=== PATIENT | female | born 1950 ===

== ENCOUNTER 2017-01-21 08:14 | Emergency (ER) | payer MEDICARE, OTHER ==
[2017-01-21 09:00] VITALS: O2SAT 99
--- NOTE | 2017-01-21 10:06 | ED PDOC ---
HPI: General Adult Time Seen by Provider: 01/21/17 09:00 Chief Complaint (Nursing): GI Problem Chief Complaint (Provider): weakness History Per: Patient History/Exam Limitations: no limitations Additional Complaint(s): 66yo female complaining of generalized weakness since last night. Patient's fasting glucose was 450+. Patient is taking oral diabetic medications. Also reports polyuria, diarrhea but denies hematuria, dysuria, vomit, abdominal pain. States normal glucose is 250. PMD: Alejandra Past Medical History Reviewed: Historical Data, Nursing Documentation, Vital Signs Vital Signs: Last Vital Signs Temp 97.7 F 01/21/17 14:57 Pulse 73 01/21/17 14:57 Resp 18 01/21/17 14:57 BP 131/97 H 01/21/17 14:57 Pulse Ox 99 01/21/17 14:57 - Medical History PMH: Asthma, Diabetes (type II) - Surgical History Surgical History: Other surgeries: tubal ligation, hardware in leg - Family History Family History: States: Unknown Family Hx - Social History Current smoker - smoking cessation education provided: No Alcohol: Other (quit drinking 3 months ago) Drugs: Denies - Home Medications Home Medications: Ambulatory Orders Medication Instructions Recorded ALPRAZolam [Xanax] 1 mg PO BID 01/21/17 Albuterol Sulfate [Proair Hfa] 2 puff IH Q6H PRN 01/21/17 Fexofenadine HCl [Divina NF] 180 mg PO DAILY 01/21/17 Glipizide [Glipizide Xl] 10 mg PO BID 01/21/17 Nitrofurantoin Macrocrystals 100 mg PO BID #14 cap 01/21/17 [Macrobid] SITagliptin [Januvia] 100 mg PO DAILY 01/21/17 - Allergies Allergies/Adverse Reactions: Allergies Allergy/AdvReac Type Severity Reaction Status Date / Time Penicillins Allergy SWELLING Verified 01/21/17 08:45 Review of Systems ROS Statement: Except As Marked, All Systems Reviewed And Found Negative Constitutional: Positive for: Weakness. Negative for: Fever Gastrointestinal: Positive for: Diarrhea. Negative for: Nausea, Vomiting, Abdominal Pain Genitourinary Female: Positive for: Other (polyuria). Negative for: Dysuria, Hematuria Physical Exam - Reviewed Nursing Documentation Reviewed: Yes Vital Signs Reviewed: Yes - Physical Exam Appears: Positive for: Well, Non-toxic, No Acute Distress Head Exam: Positive for: ATRAUMATIC, NORMAL INSPECTION, NORMOCEPHALIC Skin: Positive for: Warm, Dry Eye Exam: Positive for: EOMI, PERRL Cardiovascular/Chest: Positive for: Regular Rate, Rhythm Respiratory: Positive for: Normal Breath Sounds. Negative for: Rales, Rhonchi, Wheezing Gastrointestinal/Abdominal: Positive for: Soft. Negative for: Tenderness Extremity: Positive for: Normal ROM Neurologic/Psych: Positive for: Alert, Oriented - Laboratory Results Result Diagrams: 01/21/17 10:48 01/21/17 10:48 Urine dip results: Negative for: Leukocyte Esterase, Ketones - ECG O2 Sat by Pulse Oximetry: 99 (RA) Pulse Ox Interpretation: Normal Medical Decision Making Medical Decision Makin: impression hyperglycemia rule out DKA plan: -labs -vbg shock panel -IV fluids -reassess 1100 pH 7.36. pt afebrile. feels better 1245 Anion gap is normal. No ketones in urine. Was given 8 units insulin. borderline UTI, given macrobid 1435 Blood sugar is 300. patient's PMD is Alejandra. Patient will follow up with him tomorrow. pt feels better, tolerated po. Stable for discharge. Dx hyperglycemia, diarrhea. Disposition - Clinical Impression Clinical Impression: Diarrhea, Hyperglycemia, UTI (urinary tract infection) - Patient ED Disposition Is Patient to be Admitted: No Counseled Patient/Family Regarding: Studies Performed, Diagnosis, Need For Followup - Disposition Disposition: Routine/Home Disposition Time: 12:00 Condition: GOOD Additional Instructions: follow up with your primary doctor tomorrow for follow up. return to the ED With any worsening or concerning symptoms. Prescriptions: Nitrofurantoin Macrocrystals [Macrobid] 100 mg PO BID #14 cap Instructions: Acute Diarrhea (ED), Diabetic Hyperglycemia (ED) Additional Comments - Additional Comments Additional Comments: Scribe Attestation: Documented by Roman Kendrick acting as a scribe for Nuria Fagan MD. Provider Scribe Attestation: All medical record entries made by the Scribe were at my direction and personally dictated by me. I have reviewed the chart and agree that the record accurately reflects my personal performance of the history, physical exam, medical decision making, and the department course for this patient. I have also personally directed, reviewed, and agree with the discharge instructions and disposition.
[2017-01-21] MEDS ORDERED: Sodium Chloride 0.9% 1,000 ML IV STA (10:26)
[2017-01-21 10:59] LABS: VENOUS BLOOD GAS BASE EXCESS 1.4 mmol/L (0.0-2.0); VENOUS BLOOD GAS PCO2 49 mmHg (40-60); VENOUS BLOOD PH 7.36 (7.32-7.43)
[2017-01-21 11:04] LABS: RBC URINE 1 /hpf (0-3); URINE BILIRUBIN NEGATIVE (NEGATIVE); URINE BLOOD NEGATIVE (NEGATIVE); URINE COLOR YELLOW (YELLOW); URINE GLUCOSE (UA) >=500 mg/dL (Normal); URINE KETONE NEGATIVE (NEGATIVE); URINE LEUKOCYTE ESTERASE TRACE Leu/uL (Negative); URINE PROTEIN NEGATIVE (NEGATIVE); URINE UROBILINOGEN 0.2-1.0 mg/dL (0.2-1.0); WBC URINE 6 /hpf (0-5)
[2017-01-21 11:12] LABS: BASO % 0.4 % (0.0-2.0); EOS # 0.3 K/uL (0.0-0.7); EOS % 3.4 % (0.0-4.0); HEMATOCRIT 39.1 % (34.0-47.0); LYMPH # 2.5 K/uL (1.0-4.3); LYMPH % 28.7 % (20.0-40.0); MEAN CORPUSCULAR HEMOGLOBIN 32.5 pg (27.0-31.0); MEAN CORPUSCULAR HGB CONC 34.3 g/dL (33.0-37.0); MEAN PLATELET VOLUME 8.6 fl (7.2-11.7); MONO # 0.4 K/uL (0.0-0.8); MONO % 4.5 % (0.0-10.0); NEUT # 5.4 K/uL (1.8-7.0); NRBC % 0.1 % (0.0-0.0); RED CELL DISTRIBUTION WIDTH 12.3 % (11.5-14.5); WHITE BLOOD COUNT 8.5 K/uL (4.8-10.8)
[2017-01-21 11:20] LABS: CHLORIDE 101 mmol/L (98-107); SODIUM 136 mmol/l (132-148)
[2017-01-21 11:23] LABS: ALB/GLOB RATIO 1.1 (1.0-2.1); ALKALINE PHOSPHATASE 132 U/L (38-126); ALT/SGPT 36 U/L (9-52); AST/SGOT 34 U/L (14-36); BILIRUBIN,TOTAL 0.4 mg/dl (0.2-1.3); BLOOD UREA NITROGEN 9 mg/dl (7-17); CARBON DIOXIDE 25 mmol/L (22-30); GFR AFRICAN-AMERICAN > 60; TOTAL PROTEIN 7.2 G/DL (6.3-8.2)
[2017-01-21 11:24] LABS: CALCIUM 8.9 mg/dL (8.4-10.2)
[2017-01-21 11:34] LABS: GLUCOSE,RANDOM 452 mg/dL (65-105)
[2017-01-21] MEDS ORDERED: Insulin Regular 100 units/ml ONE (11:37)
[2017-01-21] MEDS ORDERED: Insulin Regular 100 units/ml SC STA (11:40)
[2017-01-21 14:58] VITALS: BP 131/97; PULSE 73; RESP 18; TEMP 97.7
== END 2017-01-21 15:12 | disposition home or self-care (01) ==
LOC: H.ER 08:14
DX: E11.65 Type 2 diabetes mellitus with hyperglycemia (principal); N39.0 Urinary tract infection, site not specified; R19.7 Diarrhea, unspecified; Z79.84 Long term (current) use of oral hypoglycemic drugs
CPT/HCPCS: 80053; 81003; 82803; 82948; 85025; 87086; 96372; 99284; J7040

== ENCOUNTER 2017-01-31 07:58 | Emergency (ER) | payer MEDICARE, OTHER ==
[2017-01-31 08:07] VITALS: BP 118/65; PULSE 90; RESP 18; TEMP 98.5; O2SAT 96
[2017-01-31] MEDS ORDERED: Tmp-Smz 800 mg-160 mg DS Tab PO STA (08:54)
[2017-01-31] MEDS ORDERED: Naproxen 500 MG TAB PO ONE ×2 (08:54→09:08)
[2017-01-31] MEDS ORDERED: Tmp-Smz 800 mg-160 mg DS Tab ONE (09:08)
--- NOTE | 2017-01-31 09:50 | ED PDOC ---
Lower Extremity Pain/Injury Time Seen by Provider: 01/31/17 08:16 Chief Complaint (Nursing): Lower Extremity Problem/Injury Chief Complaint (Provider): Lower Extremity Problem/Injury History Per: Patient History/Exam Limitations: no limitations Onset/Duration Of Symptoms: Days (x2 days) Current Symptoms Are (Timing): Still Present Additional Complaint(s): 66 y/o female with a past medical history of diabetes presents to the emergency department with a complaint of a first toe right foot pain x2 days. Patient states she cut the toe nail and cut too deep. Denies fever, chills, nausea, vomiting, or change in range of motion. PMD: Dr. Dany Alejandra MD Past Medical History Reviewed: Historical Data, Nursing Documentation, Vital Signs Vital Signs: Last Vital Signs Temp 98.5 F 01/31/17 08:07 Pulse 90 01/31/17 08:07 Resp 18 01/31/17 08:07 BP 118/65 01/31/17 08:07 Pulse Ox 96 01/31/17 08:07 - Medical History PMH: Asthma, Diabetes (type II) - Surgical History Surgical History: - Family History Family History: States: Unknown Family Hx - Social History Current smoker - smoking cessation education provided: No Alcohol: None Drugs: Denies - Home Medications Home Medications: Ambulatory Orders Medication Instructions Recorded ALPRAZolam [Xanax] 1 mg PO BID 01/21/17 Albuterol Sulfate [Proair Hfa] 2 puff IH Q6H PRN 01/21/17 Fexofenadine HCl [Divina NF] 180 mg PO DAILY 01/21/17 Glipizide [Glipizide Xl] 10 mg PO BID 01/21/17 Nitrofurantoin Macrocrystals 100 mg PO BID #14 cap 01/21/17 [Macrobid] SITagliptin [Januvia] 100 mg PO DAILY 01/21/17 Naproxen [Naprosyn] 500 mg PO BID PRN #20 tablet 01/31/17 Sulfamethoxazole/Trimethoprim 1 tab PO BID #14 tab 01/31/17 [Bactrim DS 800 mg-160 mg] - Allergies Allergies/Adverse Reactions: Allergies Allergy/AdvReac Type Severity Reaction Status Date / Time Penicillins Allergy SWELLING Verified 01/21/17 08:45 Review of Systems ROS Statement: Except As Marked, All Systems Reviewed And Found Negative Constitutional: Negative for: Fever, Chills Gastrointestinal: Negative for: Nausea, Vomiting Musculoskeletal: Positive for: Foot Pain (Right; first toe). Negative for: Other (Change in range of motion of the toe) Physical Exam - Reviewed Nursing Documentation Reviewed: Yes Vital Signs Reviewed: Yes - Physical Exam Appears: Positive for: Non-toxic, No Acute Distress Head Exam: Positive for: ATRAUMATIC, NORMOCEPHALIC Skin: Positive for: Normal Color, Warm, Dry Extremity: Positive for: Normal ROM, Tenderness (of the first toe to touch). Negative for: Swelling, Other (Redness, rash, or edema) - ECG O2 Sat by Pulse Oximetry: 96 (RA) Pulse Ox Interpretation: Normal Medical Decision Making Medical Decision Making: Time: 8:16 Initial impression: Toe pain history of DM Initial plan: --Naproxen 500 mg PO --Bactrim DS 1 tab Time: 8:30 Upon provider reevaluation patient is feeling better, is medically stable, and requires no further treatment in the ED at this time. Patient will be discharged home with Rx for Naproxen 500 mg and Bactrim DS 800mg-160mg . Counseling was provided and all questions were answered regarding diagnosis and need for follow up with Podiatry Clinic. There is agreement to discharge plan. Return if symptoms persist or worsen. Clinical Impression: Toe injury Scribe Attestation: Documented by Yovana Gallagher, acting as a scribe for An Grayson MD. Provider Scribe Attestation: All medical record entries made by the Scribe were at my direction and personally dictated by me. I have reviewed the chart and agree that the record accurately reflects my personal performance of the history, physical exam, medical decision making, and the department course for this patient. I have also personally directed, reviewed, and agree with the discharge instructions and disposition. Disposition - Clinical Impression Clinical Impression: Toe injury - Disposition Referrals: Podiatry Clinic [Outside] Disposition: Routine/Home Disposition Time: 09:30 Condition: STABLE Prescriptions: Naproxen [Naprosyn] 500 mg PO BID PRN #20 tablet PRN Reason: Pain, Moderate (4-7) Sulfamethoxazole/Trimethoprim [Bactrim DS 800 mg-160 mg] 1 tab PO BID #14 tab Instructions: Leg Pain (ED)
== END 2017-01-31 09:33 | disposition home or self-care (01) ==
LOC: H.ER 07:58
DX: S99.921A Unspecified injury of right foot, initial encounter (principal); X58.XXXA Exposure to other specified factors, initial encounter; Y93.E8 Activity, other personal hygiene; Y92.89 Other specified places as the place of occurrence of the external cause

== ENCOUNTER 2017-06-28 08:57 | Emergency (ER) | payer MEDICARE, OTHER ==
[2017-06-28 09:15] VITALS: TEMP 98.5
[2017-06-28 09:16] VITALS: BMI 27.4
--- NOTE | 2017-06-28 09:39 | ED PDOC ---
Syncope/Near Syncope/Dizziness Time Seen by Provider: 06/28/17 09:20 History Per: Patient (states that she started feeling dizziness last night. It feels like she would pass out but she has not. She was able to sleep okay but not as well as usually does. She has DM but does not check his own sugar. She is worried about her siblings (2 brothers and 2 sisters) who are in [place]. She [place] had [place] there[place] History/Exam Limitations: no limitations Onset/Duration Of Symptoms: Gradual Current Symptoms Are (Timing): Intermittent Episodes Associated Symptoms Preceding Syncopal Episode: Lightheadedness. denies: Vertigo, Vertigo Worse With Change In Head Position Seizure Or Post-ictal Symptoms: None Possible Causative Factor(s): Other Fall Associated With With Symptoms: No Severity: Mild - Symptoms Of CVA Recent Head Trauma: No - Risk Factors PE Risk Factors: Neg: Extremity Immobilization/Fx, Decreased Mobilty /Activity, Recent Major Surgery, Recent Hospitalization, Active Cancer, Previous DVT, Previous PE, CHF, Venous Stasis, Estrogen Usage, , Post-, Recent Major Trauma TAD Risk Factors: Neg: Hypertension, Connective Tissue Disease, Marfan's Syndrome, Eloy- Danlos Syndrome, Aortic Valve Disease, Active , Tumer's Syndrome, First Degree Relative With TAD, Sudden Onset Of Pain, Migration Of Pain, New Neurologic Symptoms Risk Factors (Syncope): Neg: H/O Ventricular Arrhythmias, Known Coronary Artery Disease, H/O Severe Valvular Disease, Congestive Heart Failure, H/O Congenital Heart Disease, Family History Of Sudden , Exertional Syncope, Brugada Syndrome Past Medical History Reviewed: Historical Data, Nursing Documentation, Vital Signs Vital Signs: Last Vital Signs Temp 98.5 F 06/28/17 09:15 Pulse 89 06/28/17 09:15 Resp 16 06/28/17 09:15 BP 120/65 06/28/17 09:15 Pulse Ox 96 06/28/17 09:15 - Medical History PMH: Asthma, Diabetes (type II) - Surgical History Surgical History: - Family History Family History: States: Unknown Family Hx - Living Arrangements Living Arrangements: Alone - Social History Current smoker - smoking cessation education provided: No Alcohol: None - Home Medications Home Medications: Ambulatory Orders Medication Instructions Recorded ALPRAZolam [Xanax] 1 mg PO BID 01/21/17 Albuterol Sulfate [Proair Hfa] 2 puff IH Q6H PRN 01/21/17 Fexofenadine HCl [Divina NF] 180 mg PO DAILY 01/21/17 Glipizide [Glipizide Xl] 10 mg PO BID 01/21/17 Nitrofurantoin Macrocrystals 100 mg PO BID #14 cap 01/21/17 [Macrobid] SITagliptin [Januvia] 100 mg PO DAILY 01/21/17 Naproxen [Naprosyn] 500 mg PO BID PRN #20 tablet 01/31/17 Sulfamethoxazole/Trimethoprim 1 tab PO BID #14 tab 01/31/17 [Bactrim DS 800 mg-160 mg] - Allergies Allergies/Adverse Reactions: Allergies Allergy/AdvReac Type Severity Reaction Status Date / Time Penicillins Allergy SWELLING Verified 01/21/17 08:45 Review of Systems ROS Statement: Except As Marked, All Systems Reviewed And Found Negative Constitutional: Negative for: Fever, Chills Cardiovascular: Negative for: Chest Pain Respiratory: Negative for: Cough, Shortness of Breath Gastrointestinal: Positive for: Other (going to bathroom frequently with formed stool). Negative for: Nausea, Vomiting, Diarrhea, Constipation Physical Exam - Reviewed Nursing Documentation Reviewed: Yes Vital Signs Reviewed: Yes - Physical Exam Appears: Positive for: Well, Non-toxic, No Acute Distress Head Exam: Positive for: ATRAUMATIC, NORMAL INSPECTION, NORMOCEPHALIC Skin: Positive for: Normal Color, Warm, DRY Eye Exam: Positive for: EOMI, Normal appearance, PERRL ENT: Positive for: Normal ENT Inspection Neck: Positive for: Normal, Painless ROM Cardiovascular/Chest: Positive for: Regular Rate, Rhythm Respiratory: Positive for: CNT, Normal Breath Sounds Gastrointestinal/Abdominal: Positive for: Normal Exam, Bowel Sounds, Soft Back: Positive for: Normal Inspection Extremity: Positive for: Normal ROM Neurologic/Psych: Positive for: Alert, Oriented - Laboratory Results Result Diagrams: 06/28/17 09:50 06/28/17 09:50 - ECG ECG: Positive for: Viewed By Me ECG Rhythm: Positive for: Normal QRS Rate: 87 O2 Sat by Pulse Oximetry: 96 - Progress Re-evaluation Time: 12:00 Condition: Re-examined, Improved Disposition - Clinical Impression Clinical Impression: Hyperglycemia - Patient ED Disposition Is Patient to be Admitted: No Doctor Will See Patient In The: Office - Disposition Referrals: Dany Alejandra MD [Staff Provider] - [facility] Brasher [Outside] Disposition: Routine/Home Disposition Time: 12:19 Condition: STABLE Instructions: Diabetic Hyperglycemia (ED) Forms: [employer] (Mongolian) - POA Present On Arrival: None
[2017-06-28] MEDS ORDERED: Sodium Chloride 0.9% 1,000 ML IV SCH (09:45)
[2017-06-28 10:06] LABS: BASO % 0.5 % (0.0-2.0); EOS # 0.1 K/uL (0.0-0.7); EOS % 0.9 % (0.0-4.0); HEMATOCRIT 41.8 % (34.0-47.0); LYMPH # 2.1 K/uL (1.0-4.3); LYMPH % 26.1 % (20.0-40.0); MEAN CELL VOLUME 95.3 fl (81.0-99.0); MEAN CORPUSCULAR HEMOGLOBIN 31.8 pg (27.0-31.0); MEAN CORPUSCULAR HGB CONC 33.4 g/dL (33.0-37.0); MEAN PLATELET VOLUME 7.8 fl (7.2-11.7); MONO # 0.4 K/uL (0.0-0.8); MONO % 5.4 % (0.0-10.0); NEUT # 5.4 K/uL (1.8-7.0); NEUT % 67.1 % (50.0-75.0)
[2017-06-28 10:08] LABS: RBC URINE 1 /hpf (0-3); URINE BACTERIA RARE (<OCC); URINE BILIRUBIN NEGATIVE (NEGATIVE); URINE BLOOD NEGATIVE (NEGATIVE); URINE COLOR YELLOW (YELLOW); URINE GLUCOSE (UA) >=500 mg/dL (Normal); URINE KETONE NEGATIVE (NEGATIVE); URINE LEUKOCYTE ESTERASE NEG Leu/uL (Negative); URINE PROTEIN 30 mg/dL (NEGATIVE); URINE UROBILINOGEN 0.2-1.0 mg/dL (0.2-1.0); WBC URINE < 1 /hpf (0-5)
[2017-06-28 10:18] LABS: BLOOD UREA NITROGEN 7 mg/dl (7-17); CALCIUM 9.4 mg/dL (8.4-10.2); CARBON DIOXIDE 24 mmol/L (22-30); CHLORIDE 98 mmol/L (98-107); GFR AFRICAN-AMERICAN > 60; GLUCOSE,RANDOM 318 mg/dL (65-105); POTASSIUM 4.2 MMOL/L (3.6-5.0); SODIUM 137 mmol/l (132-148)
[2017-06-28 12:29] VITALS: BP 126/75; PULSE 81; RESP 18; O2SAT 98
--- NOTE | 2017-06-29 11:39 | CARD ---
APPROVED REPORT EKG Measurement Heart [id number] <Conclusion> Normal sinus rhythm Normal ECG
== END 2017-06-28 12:31 | disposition home or self-care (01) ==
LOC: H.ER 08:57
DX: E11.65 Type 2 diabetes mellitus with hyperglycemia (principal); Z88.0 Allergy status to penicillin; J45.909 Unspecified asthma, uncomplicated
CPT/HCPCS: 80048; 81003; 82948; 84484; 85025; 93005; 96360; 96361; 99285; J7040

== ENCOUNTER 2017-08-03 05:18 | Emergency (ER) | payer MEDICARE, OTHER ==
[2017-08-03 05:19] VITALS: BMI 27.4
[2017-08-03] MEDS ORDERED: Sodium Chloride 0.9% 1,000 ML IV STA (06:16)
[2017-08-03] MEDS ORDERED: Dexamethasone 10 MG in Sodium Chloride 0.9% 50 ML IV STA (06:17)
--- NOTE | 2017-08-03 06:32 | ED PDOC ---
HPI: CCC, URI, Sore Throat Time Seen by Provider: 08/03/17 06:04 Chief Complaint (Nursing): ENT Problem Chief Complaint (Provider): Sore Throat History Per: Patient History/Exam Limitations: no limitations Onset/Duration Of Symptoms: Days (x3 days) Current Symptoms Are (Timing): Still Present Additional Complaint(s): 66 y/o female presents to the ED complaining of sore throat and hoarse voice x2 days and has history of Diabetes and Hypertension. Patient states she has trouble swallowing but can drink clear fluids. She also notes right sided ear pain and neck pain. Patient denies vomiting, diarrhea, cough, shortness of breath or any further medical complaints. PMD: Dr.Ellis Lucille Alejandra MD Past Medical History Reviewed: Historical Data, Nursing Documentation, Vital Signs Vital Signs: Last Vital Signs Temp 98.5 F 08/03/17 05:54 Pulse 97 H 08/03/17 05:54 Resp 18 08/03/17 05:54 BP 157/58 H 08/03/17 05:54 Pulse Ox 97 08/03/17 06:55 - Medical History PMH: Asthma, Diabetes (type II), HTN - Surgical History Surgical History: Other surgeries: Nose surgery, Left leg surgery - Family History Family History: States: Unknown Family Hx - Social History Current smoker - smoking cessation education provided: No Alcohol: Other (Yes) Drugs: Denies - Home Medications Home Medications: Ambulatory Orders Medication Instructions Recorded ALPRAZolam [Xanax] 1 mg PO BID 01/21/17 Albuterol Sulfate [Proair Hfa] 2 puff IH Q6H PRN 01/21/17 Fexofenadine HCl [Divina NF] 180 mg PO DAILY 01/21/17 Glipizide [Glipizide Xl] 10 mg PO BID 01/21/17 Nitrofurantoin Macrocrystals 100 mg PO BID #14 cap 01/21/17 [Macrobid] SITagliptin [Januvia] 100 mg PO DAILY 01/21/17 Naproxen [Naprosyn] 500 mg PO BID PRN #20 tablet 01/31/17 Sulfamethoxazole/Trimethoprim 1 tab PO BID #14 tab 01/31/17 [Bactrim DS 800 mg-160 mg] - Allergies Allergies/Adverse Reactions: Allergies Allergy/AdvReac Type Severity Reaction Status Date / Time Penicillins Allergy SWELLING Verified 01/21/17 08:45 Review of Systems ROS Statement: Except As Marked, All Systems Reviewed And Found Negative Constitutional: Positive for: Fever, Malaise ENT: Positive for: Throat Pain (sore throat and hoarse voice) Respiratory: Negative for: Cough, Shortness of Breath Gastrointestinal: Negative for: Vomiting, Diarrhea Physical Exam - Reviewed Nursing Documentation Reviewed: Yes Vital Signs Reviewed: Yes - Physical Exam Appears: Positive for: Non-toxic, No Acute Distress Head Exam: Positive for: ATRAUMATIC, NORMAL INSPECTION, NORMOCEPHALIC Skin: Positive for: Normal Color, Warm, Dry ENT: Positive for: Other (Bilateral anterior cervical adenopathy (right greater than left), no trismus). Negative for: Tonsillar Exudate (Oropharynx is injected with no tonsillar exudate) Cardiovascular/Chest: Positive for: Regular Rate, Rhythm. Negative for: Murmur Respiratory: Positive for: Normal Breath Sounds. Negative for: Accessory Muscle Use, Respiratory Distress Neurologic/Psych: Positive for: Alert, Oriented (x3) - ECG O2 Sat by Pulse Oximetry: 97 (RA) Pulse Ox Interpretation: Normal Medical Decision Making Medical Decision Making: Time: 06:16 Initial Impression: sore throat Initial Plan: --CMP --CBC w/ diff --Decadron 10mg --Sodium Chloride 0.9% 50ml IV --Toradol 10mg IV --Sodium Chlordie 1L IV --Blood culture --Accucheck --Candler (infectious mononucleosis) --Influenza A B --Rapid strep group --Reevaluation Time: 0700 Patient will be signed over to Dr. Becerra pending labs and reevaluation Scribe Attestation: Documented by Deven Sigala, acting as a scribe for Dr. Celena Becerra MD. Provider Scribe Attestation: All medical record entries made by the Scribe were at my direction and personally dictated by me. I have reviewed the chart and agree that the record accurately reflects my personal performance of the history, physical exam, medical decision making, and the department course for this patient. I have also personally directed, reviewed, and agree with the discharge instructions and disposition. Disposition - Disposition Referrals: Dany Alejandra MD [Primary Care Provider] - Forms: [employer] (Congolese) Patient Signed Over To: Celena Becerra Handoff Comments: Pending labs and reevaluation
[2017-08-03 07:08] LABS: ALB/GLOB RATIO 1.3 (1.0-2.1); ALKALINE PHOSPHATASE 105 U/L (38-126); ALT/SGPT 49 U/L (9-52); AST/SGOT 46 U/L (14-36); BILIRUBIN,TOTAL 0.4 mg/dl (0.2-1.3); BLOOD UREA NITROGEN 8 mg/dl (7-17); CALCIUM 8.9 mg/dL (8.4-10.2); CARBON DIOXIDE 27 mmol/L (22-30); CHLORIDE 101 mmol/L (98-107); GFR AFRICAN-AMERICAN > 60; GLUCOSE,RANDOM 239 mg/dL (65-105); POTASSIUM 3.8 MMOL/L (3.6-5.0); SODIUM 140 mmol/l (132-148); TOTAL PROTEIN 7.4 G/DL (6.3-8.2)
[2017-08-03 07:12] LABS: BASO % 0.3 % (0.0-2.0); EOS # 0.2 K/uL (0.0-0.7); EOS % 1.6 % (0.0-4.0); HEMATOCRIT 39.6 % (34.0-47.0); LYMPH # 1.9 K/uL (1.0-4.3); LYMPH % 17.6 % (20.0-40.0); MEAN CELL VOLUME 94.8 fl (81.0-99.0); MEAN CORPUSCULAR HEMOGLOBIN 32.3 pg (27.0-31.0); MEAN CORPUSCULAR HGB CONC 34.1 g/dL (33.0-37.0); MONO # 0.8 K/uL (0.0-0.8); MONO % 6.9 % (0.0-10.0); NEUT # 8.1 K/uL (1.8-7.0); NEUT % 73.6 % (50.0-75.0); RED CELL DISTRIBUTION WIDTH 12.7 % (11.5-14.5)
--- NOTE | 2017-08-03 07:22 | ED PDOC ---
- Laboratory Results Result Diagrams: 08/03/17 06:40 08/03/17 06:40 - ECG O2 Sat by Pulse Oximetry: 97 (RA) Medical Decision Making Medical Decision Making: Time: 07:00 Plan: --Patient signed out to me by Dr. Rain pending labs and reevaluation. Time: 08:50 Clinical Impression: Upper respiratory infection Plan: --Upon provider evaluation patient is medically stable, and requires no further treatment in the ED at this time. Patient will be discharged with Rx for Loratadine and Naproxen. Counseling was provided and all questions were answered regarding diagnosis and need for follow up with PMD. There is agreement to discharge plan. Return if symptoms persist or worsen. --- Scribe Attestation: Documented by Marquez Zimmerman acting as a scribe for Celena Becerra MD. Scribe Attestation: All medical record entries made by the Scribe were at my direction and personally dictated by me. I have reviewed the chart and agree that the record accurately reflects my personal performance of the history, physical exam, medical decision making, and the department course for this patient. I have also personally directed, reviewed, and agree with the discharge instructions and disposition. Disposition Counseled Patient/Family Regarding: Studies Performed, Diagnosis, Need For Followup, Rx Given - Clinical Impression Clinical Impression: URI (upper respiratory infection) - POA Present On Arrival: None - Disposition Referrals: Dany Alejandra MD [Primary Care Provider] - Disposition: Routine/Home Disposition Time: 08:44 Condition: STABLE Prescriptions: Loratadine [Claritin] 10 mg PO DAILY #10 tab Naproxen [Naprosyn] 500 mg PO BID PRN #15 tablet PRN Reason: Pain, Moderate (4-7) Instructions: Upper Respiratory Infection (ED) Forms: [employer] (Spanish)
[2017-08-03 07:55] VITALS: BP 130/72; PULSE 81; RESP 17; TEMP 97.6
[2017-08-03 08:58] VITALS: O2SAT 97
== END 2017-08-03 09:14 | disposition home or self-care (01) ==
LOC: H.ER 05:18
DX: J06.9 Acute upper respiratory infection, unspecified (principal); E11.9 Type 2 diabetes mellitus without complications; I10 Essential (primary) hypertension
CPT/HCPCS: 80053; 82948; 85025; 86308; 87040; 87070; 87430; 87804; 96361; 96374; 96375; 99283; J1100; J1885; J7040

== ENCOUNTER 2017-12-24 09:10 | Emergency (ER) | payer MEDICARE, OTHER ==
[2017-12-24 09:15] VITALS: BMI 27.0
--- NOTE | 2017-12-24 09:56 | ED PDOC ---
HPI: General Adult Time Seen by Provider: 12/24/17 09:33 Chief Complaint (Nursing): Dizziness/Lightheaded Chief Complaint (Provider): Dizziness History Per: Patient History/Exam Limitations: no limitations Onset/Duration Of Symptoms: Days (x2) Current Symptoms Are (Timing): Still Present Additional Complaint(s): Claire Guerrero is a 67 year old female, with a past medical history of diabetes and hypertension, who presents to the emergency department complaining of dizziness onset for x2 days. Patient describes it as room spinning and worst when she stands up. She denies similar symptoms in the past. She also reports nausea but denies any vomiting, chest pain, shortness of breath, paresthesia, weakness or visual changes. No further medical complaints. PMD: Dany Alejandra I Past Medical History Reviewed: Historical Data, Nursing Documentation, Vital Signs Vital Signs: Last Vital Signs Temp 97.6 F 12/24/17 13:35 Pulse 78 12/24/17 13:35 Resp 19 12/24/17 13:35 BP 128/78 12/24/17 13:35 Pulse Ox 98 12/24/17 13:35 - Medical History PMH: Asthma, Diabetes (type II), HTN - Surgical History Surgical History: - Family History Family History: States: Unknown Family Hx - Home Medications Home Medications: Ambulatory Orders Medication Instructions Recorded ALPRAZolam [Xanax] 1 mg PO BID 01/21/17 Fexofenadine HCl [Divina NF] 180 mg PO DAILY 01/21/17 Glipizide [Glipizide Xl] 10 mg PO BID 01/21/17 SITagliptin [Januvia] 100 mg PO DAILY 01/21/17 Albuterol Sulfate [Proair Hfa] 2 puff IH QID PRN 12/24/17 Gabapentin [Neurontin] 300 mg PO DAILY 12/24/17 Meclizine [Meclizine*] 25 mg PO Q6 PRN #20 tab 12/24/17 - Allergies Allergies/Adverse Reactions: Allergies Allergy/AdvReac Type Severity Reaction Status Date / Time Penicillins Allergy SWELLING Verified 01/21/17 08:45 Review of Systems ROS Statement: Except As Marked, All Systems Reviewed And Found Negative Eyes: Negative for: Vision Change Cardiovascular: Negative for: Chest Pain Respiratory: Negative for: Shortness of Breath Gastrointestinal: Positive for: Nausea. Negative for: Vomiting Neurological: Positive for: Dizziness (room spinning). Negative for: Weakness, Other (paresthesia) Physical Exam - Reviewed Nursing Documentation Reviewed: Yes Vital Signs Reviewed: Yes - Physical Exam Appears: Positive for: Non-toxic, No Acute Distress Head Exam: Positive for: ATRAUMATIC, NORMAL INSPECTION, NORMOCEPHALIC Skin: Positive for: Normal Color, Warm, Dry Eye Exam: Positive for: Normal appearance, PERRL, Nystagmus (horizontal) Neck: Positive for: Painless ROM, Supple Cardiovascular/Chest: Positive for: Regular Rate, Rhythm. Negative for: Murmur Respiratory: Positive for: Normal Breath Sounds. Negative for: Respiratory Distress Extremity: Positive for: Normal ROM. 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 Negative for: Motor/Sensory Deficits , Aphasia, Facial Droop - Laboratory Results Result Diagrams: 12/24/17 09:59 12/24/17 09:59 - ECG O2 Sat by Pulse Oximetry: 95 (RA) Pulse Ox Interpretation: Normal - Progress ED Course And Treament: Pt feels better, steady gait. Re-evaluation Time: 12:54 Condition: Improved Medical Decision Making Medical Decision Making: Initial Impression: Vertigo Initial Plan: --Head w/o contrast [CT] --EKG --CMP --Urine dipstick --CBC w/ differential --PTT --PT --Glucose, Blood, POC --Urinalysis 11:[address] FINDINGS: HEMORRHAGE: No intracranial hemorrhage. BRAIN: No mass effect or edema. Cerebral generalized atrophy and probable periventricular microvascular ischemic changes. VENTRICLES: Unremarkable. No hydrocephalus. CALVARIUM: Unremarkable. PARANASAL SINUSES: Mild coastal thickening ethmoidal air cells bilateral. MASTOID AIR CELLS: Unremarkable as visualized. No inflammatory changes. OTHER FINDINGS: No gross cerebellar pontine angle pathology. No gross internal auditory canal pathology seen. IMPRESSION: Cerebral atrophy and microvascular ischemic changes. No hemorrhage or mass effect. No mastoid, gross middle ear cavity or cerebellar pontine angle pathology noted. Chronic appearing ethmoidal sinus mucosal thickening Scribe Attestation: Documented by Rafa Moya, acting as a scribe for Celena Becerra MD Provider Scribe Attestation: All medical record entries made by the Scribe were at my direction and personally dictated by me. I have reviewed the chart and agree that the record accurately reflects my personal performance of the history, physical exam, medical decision making, and the department course for this patient. I have also personally directed, reviewed, and agree with the discharge instructions and disposition. Disposition - Clinical Impression Clinical Impression: Vertigo, Hyperglycemia - Disposition Referrals: [facility] [Outside] [facility] [Outside] Disposition: Routine/Home Condition: IMPROVED Prescriptions: Meclizine [Meclizine*] 25 mg PO Q6 PRN #20 tab PRN Reason: Dizziness Instructions: Vertigo (a Type of Dizziness), Hyperglycemia, Adult Forms: [employer] ([place]ese)
[2017-12-24 10:09] LABS: BASO % 0.5 % (0.0-2.0); EOS # 0.1 K/uL (0.0-0.7); EOS % 1.7 % (0.0-4.0); HEMOGLOBIN 13.9 g/dL (12.0-16.0); LYMPH # 1.8 K/uL (1.0-4.3); LYMPH % 26.6 % (20.0-40.0); MEAN CELL VOLUME 95.4 fl (81.0-99.0); MEAN CORPUSCULAR HGB CONC 34.6 g/dL (33.0-37.0); MEAN PLATELET VOLUME 8.5 fl (7.2-11.7); MONO # 0.3 K/uL (0.0-0.8); MONO % 4.2 % (0.0-10.0); NEUT # 4.6 K/uL (1.8-7.0); NRBC % 0.2 % (0.0-0.0); RBC 4.2 Mil/uL (3.80-5.20); RED CELL DISTRIBUTION WIDTH 12.6 % (11.5-14.5); WHITE BLOOD COUNT 6.8 K/uL (4.8-10.8)
[2017-12-24] MEDS ORDERED: Sodium Chloride 0.9% 1,000 ML IV STA (10:11)
[2017-12-24 10:27] LABS: ALB/GLOB RATIO 1.2 (1.0-2.1); ALBUMIN 4.1 g/dL (3.5-5.0); CALCIUM 9.3 mg/dL (8.4-10.2); GFR AFRICAN-AMERICAN > 60; GFR NON-AFRICAN AMERICAN > 60
[2017-12-24 10:48] LABS: ALT/SGPT 37 U/L (9-52); AST/SGOT 40 U/L (14-36); BLOOD UREA NITROGEN 15 mg/dl (7-17)
[2017-12-24 10:49] LABS: PARTIAL THROMBOPLASTIN TIME 27.3 Seconds (25.6-37.1); PROTHROMBIN TIME 11.2 Seconds (9.8-13.1)
[2017-12-24 10:54] LABS: URINE BACTERIA RARE (<OCC)
[2017-12-24 11:10] LABS: SQUAMOUS EPITHIAL < 1 /hpf (0-5); URINE BILIRUBIN NEGATIVE (NEGATIVE); URINE BLOOD NEGATIVE (NEGATIVE); URINE CLARITY CLEAR (Clear); URINE COLOR YELLOW (YELLOW); URINE GLUCOSE (UA) >=500 mg/dL (Normal); URINE LEUKOCYTE ESTERASE NEG Leu/uL (Negative); URINE PROTEIN 30 mg/dL (NEGATIVE); URINE UROBILINOGEN 0.2-1.0 mg/dL (0.2-1.0)
--- NOTE | 2017-12-24 11:10 | CT ---
PROCEDURE: CT HEAD WITHOUT CONTRAST. HISTORY: Vertigo COMPARISON: None available. TECHNIQUE: Axial computed tomography images were obtained through the head/brain without intravenous contrast. Radiation dose: Total exam DLP = 855 mGy-cm. This CT exam was performed using one or more of the following dose reduction techniques: Automated exposure control, adjustment of the mA and/or kV according to patient size, and/or use of iterative reconstruction technique. FINDINGS: HEMORRHAGE: No intracranial hemorrhage. BRAIN: No mass effect or edema. Cerebral generalized atrophy and probable periventricular microvascular ischemic changes. VENTRICLES: Unremarkable. No hydrocephalus. CALVARIUM: Unremarkable. PARANASAL SINUSES: Mild coastal thickening ethmoidal air cells bilateral. MASTOID AIR CELLS: Unremarkable as visualized. No inflammatory changes. OTHER FINDINGS: No gross cerebellar pontine angle pathology. No gross internal auditory canal pathology seen. IMPRESSION: Cerebral atrophy and microvascular ischemic changes. No hemorrhage or mass effect. No mastoid, gross middle ear cavity or cerebellar pontine angle pathology noted. Chronic appearing ethmoidal sinus mucosal thickening
[2017-12-24 13:36] VITALS: BP 128/78; PULSE 78; RESP 19; TEMP 97.6
[2017-12-24 18:10] VITALS: O2SAT 95
--- NOTE | 2017-12-25 10:08 | CARD ---
APPROVED REPORT EKG Measurement Heart [id number] <Conclusion> Normal sinus rhythm Normal ECG
== END 2017-12-24 13:45 | disposition home or self-care (01) ==
LOC: H.ER 09:10
DX: R42 Dizziness and giddiness (principal); E11.65 Type 2 diabetes mellitus with hyperglycemia; I10 Essential (primary) hypertension; J45.909 Unspecified asthma, uncomplicated; Z79.84 Long term (current) use of oral hypoglycemic drugs; Z88.0 Allergy status to penicillin
CPT/HCPCS: 70450; 80053; 81003; 82948; 85025; 85610; 85730; 93005; 99285; J7040

== ENCOUNTER 2017-12-27 09:28 | Inpatient (IN) | payer MEDICARE, OTHER ==
[2017-12-27 09:28] VITALS: BMI 27.0
--- NOTE | 2017-12-27 10:29 | ED PDOC ---
HPI: CCC, URI, Sore Throat Time Seen by Provider: 12/27/17 10:28 Chief Complaint (Nursing): Dizziness/Lightheaded Chief Complaint (Provider): ear pain, headache, dizziness History Per: Patient Additional Complaint(s): 67-year-old female presents to emergency department with right ear pain, sore throat and dizziness ongoing for 5 days. Patient was seen 2 days ago and had CAT scan of head completed along with labs. Patient was discharged with meclizine and returns today stating she does not feel better. Dizziness has persisted and patient feels unsteady on her feet. Patient has slight nausea with no vomiting. She is tolerating liquids and solids. No fever or chills. No chest pain, SOB or CHASE. PMD: Dr. Alejandra Past Medical History Reviewed: Historical Data, Nursing Documentation, Vital Signs Vital Signs: Last Vital Signs Temp 97 F L 12/27/17 09:33 Pulse 109 H 12/27/17 09:33 Resp BP 160/80 H 12/27/17 09:33 Pulse Ox 95 12/27/17 11:12 - Medical History PMH: Asthma, Diabetes (type II), HTN - Surgical History Surgical History: - Family History Family History: States: No Known Family Hx - Living Arrangements Living Arrangements: Alone - Social History Current smoker - smoking cessation education provided: No Alcohol: None Drugs: Denies - Home Medications Home Medications: Ambulatory Orders Medication Instructions Recorded ALPRAZolam [Xanax] 1 mg PO BID 01/21/17 Fexofenadine HCl [Divina NF] 180 mg PO DAILY 01/21/17 Glipizide [Glipizide Xl] 10 mg PO BID 01/21/17 SITagliptin [Januvia] 100 mg PO DAILY 01/21/17 Albuterol Sulfate [Proair Hfa] 2 puff IH QID PRN 12/24/17 Gabapentin [Neurontin] 300 mg PO DAILY 12/24/17 Meclizine [Meclizine*] 25 mg PO Q6 PRN #20 tab 12/24/17 - Allergies Allergies/Adverse Reactions: Allergies Allergy/AdvReac Type Severity Reaction Status Date / Time Penicillins Allergy SWELLING Verified 01/21/17 08:45 Curb-65 Severity Score - CURB-65 Severity Score Confusion: No Bun >19mg/dl (>7mmol/L): No Respiratory Rate greater than/equal to 30: No Curb-65 Score: 0 Percentage 30-day mortality: 0.6% Review of Systems ROS Statement: Except As Marked, All Systems Reviewed And Found Negative Constitutional: Negative for: Fever ENT: Positive for: Ear Pain Cardiovascular: Negative for: Chest Pain, Palpitations Gastrointestinal: Positive for: Nausea. Negative for: Vomiting, Abdominal Pain Genitourinary Female: Negative for: Dysuria Neurological: Positive for: Headache, Dizziness. Negative for: Weakness, Numbness, Incoordination, Change in Speech, Confusion, Seizures, Altered Mental Status Physical Exam - Reviewed Nursing Documentation Reviewed: Yes Vital Signs Reviewed: Yes - Physical Exam Appears: Positive for: Well, Non-toxic, No Acute Distress Skin: Negative for: Rash Eye Exam: Positive for: Normal appearance ENT: Positive for: Other (Right ear: cerumen, Left ear clear). Negative for: Nasal Congestion, Pharyngeal Erythema Cardiovascular/Chest: Positive for: Regular Rate, Rhythm Respiratory: Positive for: Normal Breath Sounds. 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 Negative for: Motor/Sensory Deficits, Aphasia, Facial Droop - Laboratory Results Result Diagrams: 12/27/17 11:00 12/27/17 11:00 - ECG Interpretation Of ECG: NSR 85 bpm, no acute finding, reviewed by PA and ED attending O2 Sat by Pulse Oximetry: 95 Pulse Ox Interpretation: Normal - Other Rad CXR X-Ray: Interpreted by Me, Viewed By Me X-Ray Interpretation: no acute finding Medical Decision Making Medical Decision Makin67 year old with dizziness, headache and ear pain CT head completed 2 days ago: no acute finding Plan: CBC CMP Trop CXR EKG PO tylenol Patient with persistent dizziness, nausea and unsteady gait despite taking meclizine at home for [address] to [address] Alejandra, patient's primary doctor, who states to admit patient overnight for observation. Half-normal saline at 80 ML's per hour was ordered as per Dr. Alejandra. Dr. Newby contacted for neuro consult as per Dr. Alejandra. MRI brain ordered as per Dr. Newby along with 2 mg IV dexamathasone. Patient is aware of and agrees with admission. Disposition - Clinical Impression Clinical Impression: Dizziness, Unsteady gait - Patient ED Disposition Is Patient to be Admitted: Yes - Disposition Disposition Time: 12:12 Condition: FAIR - POA Present On Arrival: Poor Glycemic Control Results - Lab Results Lab Results: 12/27/17 12/27/17 11:00 11:00 WBC 7.8 RBC 4.48 Hgb 14.7 Hct 43.2 MCV 96.5 MCH 32.8 H MCHC 34.0 RDW 12.7 Plt Count 236 MPV 8.3 Neut % (Auto) 68.7 Lymph % (Auto) 24.4 [place] % (Auto) 5.5 Eos % (Auto) 0.8 Baso % (Auto) 0.6 Neut # (Auto) 5.4 Lymph # (Auto) 1.9 [place] # (Auto) 0.4 Eos # (Auto) 0.1 Baso # (Auto) 0.0 Sodium 142 Potassium 4.3 Chloride 101 Carbon Dioxide 28 Anion Gap 17 BUN 10 Creatinine 0.6 L Est GFR ( Amer) > 60 Est GFR (Non-Af Amer) > 60 Random Glucose 281 H Calcium 9.6 Total Bilirubin 0.7 AST 67 H D ALT 58 H D Alkaline Phosphatase 96 Troponin I < 0.0120 Total Protein 7.9 Albumin 4.3 Globulin 3.6 Albumin/Globulin Ratio 1.2
[2017-12-27] MEDS ORDERED: Dexamethasone 4 mg/1 ml IV STA (11:09)
--- NOTE | 2017-12-27 11:37 | RAD ---
HISTORY: Admit COMPARISON: Comparison chest 09/02/2017. FINDINGS: LUNGS: No active pulmonary disease. Note that both lung apices are partially obscured by overlying facial soft tissue artifact. PLEURA: No significant pleural effusion identified, no pneumothorax apparent. CARDIOVASCULAR: Heart upper limits of normal/borderline enlarged. . OSSEOUS STRUCTURES: Minor multilevel degenerative spondylosis of the thoracic spine. . VISUALIZED UPPER ABDOMEN: Normal. OTHER FINDINGS: None. IMPRESSION: No acute infiltrates.
[2017-12-27] MEDS ORDERED: Dexamethasone 4 mg/1 ml ONE (11:39)
[2017-12-27 11:48] LABS: BASO % 0.6 % (0.0-2.0); EOS # 0.1 K/uL (0.0-0.7); EOS % 0.8 % (0.0-4.0); HEMOGLOBIN 14.7 g/dL (12.0-16.0); LYMPH # 1.9 K/uL (1.0-4.3); LYMPH % 24.4 % (20.0-40.0); MEAN CELL VOLUME 96.5 fl (81.0-99.0); MEAN CORPUSCULAR HEMOGLOBIN 32.8 pg (27.0-31.0); MEAN PLATELET VOLUME 8.3 fl (7.2-11.7); MONO # 0.4 K/uL (0.0-0.8); MONO % 5.5 % (0.0-10.0); NEUT # 5.4 K/uL (1.8-7.0); NEUT % 68.7 % (50.0-75.0); NRBC % 1.3 % (0.0-0.0); RBC 4.48 Mil/uL (3.80-5.20); RED CELL DISTRIBUTION WIDTH 12.7 % (11.5-14.5); WHITE BLOOD COUNT 7.8 K/uL (4.8-10.8)
[2017-12-27 12:03] LABS: ALB/GLOB RATIO 1.2 (1.0-2.1); ALBUMIN 4.3 g/dL (3.5-5.0); ALT/SGPT 58 U/L (9-52); AST/SGOT 67 U/L (14-36); BLOOD UREA NITROGEN 10 mg/dl (7-17); CALCIUM 9.6 mg/dL (8.4-10.2); GFR AFRICAN-AMERICAN > 60; GFR NON-AFRICAN AMERICAN > 60
[2017-12-27] MEDS ORDERED: Sodium Chloride 0.45% 1,000 ML IV SCH (19:45)
[2017-12-27] MEDS: GlipiZIDE 10 mg SR Tab PO SCH (20:10)
[2017-12-27] MEDS: Insulin Lispro (humaLOG) 100 Units/ml Inj SC SCH (22:48)
[2017-12-28 06:11] LABS: MEAN CORPUSCULAR HEMOGLOBIN 33.2 pg (27.0-31.0); MEAN CORPUSCULAR HGB CONC 34.2 g/dL (33.0-37.0); RBC 4.22 Mil/uL (3.80-5.20); RED CELL DISTRIBUTION WIDTH 12.9 % (11.5-14.5); WHITE BLOOD COUNT 10.5 K/uL (4.8-10.8)
[2017-12-28] MEDS: Insulin Lispro (humaLOG) 100 Units/ml Inj SC SCH ×4 (07:56→22:59)
[2017-12-28 08:52] LABS: BLOOD UREA NITROGEN 12 mg/dl (7-17); CALCIUM 9.1 mg/dL (8.4-10.2); GFR AFRICAN-AMERICAN > 60; GFR NON-AFRICAN AMERICAN > 60
[2017-12-28] MEDS: GlipiZIDE 10 mg SR Tab PO SCH ×2 (09:32→17:15)
--- NOTE | 2017-12-28 10:32 | CARD ---
APPROVED REPORT EKG Measurement Heart [id number] <Conclusion> Normal sinus rhythm Normal ECG
--- NOTE | 2017-12-28 11:12 | MRI ---
PROCEDURE: Magnetic Resonance Angiography Brain HISTORY: dizziness, headache COMPARISON: None available. TECHNIQUE: 3D time of flight MR angiography of the intracranial arteries was performed. Rotating maximum intensity projection images were generated. FINDINGS: INTERNAL CAROTID ARTERIES: The skull base, petrous, and supraclinoid segments are bilaterally widely patient. There is limited atherosclerotic narrowing of the proximal cavernous right ICA with the left ICA widely patent through the cavernous segment. ANTERIOR CEREBRAL ARTERIES: Unremarkable. A1 and A2 segments are widely patent. Smaller distal branches unremarkable, as visualized. MIDDLE CEREBRAL ARTERIES: Unremarkable. M1 and M2 segments are widely patent. Perisylvian branches grossly symmetric. POSTERIOR CIRCULATION: Basilar Artery: Unremarkable. Distal Vertebral Arteries: Unremarkable. Posterior Cerebral Arteries: Hypoplastic left P1 SOCIAL SERVICES ASSISTANT with unremarkable right SOCIAL SERVICES ASSISTANT. Posterior Inferior Cerebellar Arteries: Unremarkable. ANEURYSM/ VASCULAR MALFORMATIONS: None. OTHER FINDINGS: None. IMPRESSION: Atherosclerosis of the proximal cavernous right ICA segment is appreciated without significant stenosis resulting. 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 Remainder the intracranial MR angiogram is otherwise unremarkable.
--- NOTE | 2017-12-28 11:34 | HP ---
ADMITTING HISTORY AND PHYSICAL HISTORY OF PRESENT ILLNESS: Ms. Guerrero is a 67-year-old female who was admitted via the Emergency Room because of persistent dizziness and feeling like she was going to blackout for several days prior to presentation. She also complained of right ear pain. She was seen in the Emergency Room recently for similar condition, treated and discharged home after all workup was non-revealing, but only recurrent because of the above symptoms. In the Emergency Room, she was found to have elevated serum glucose and a blood pressure. She was therefore admitted to rule out cerebrovascular pathology and to better control of blood pressure and diabetes. PAST MEDICAL HISTORY: Remarkable for diabetes mellitus, asthma, hypertension and hyperlipidemia with anxiety. FAMILY HISTORY: Non-revealing. SOCIAL HISTORY: Socially, she does not smoke or drink. REVIEW OF SYSTEMS: Essentially remarkable for anxiety disorder. MEDICATIONS: Include Xanax, Divina, glipizide, Januvia, albuterol, Neurontin, and meclizine, but she is noncompliant to all medications and diet. PHYSICAL EXAMINATION GENERAL: The patient is alert and oriented, still complains of feeling dizzy. She was gradually improving with IV hydration. VITAL SIGNS: Blood pressure of 160/92, pulse of 100, respiratory rate is 18, and she is febrile. O2 saturation is 99% on room air. SKIN: Shows fair turgor. HEENT: Pupils are equal, round and reactive to light and accommodation. JVP is flat. Mouth shows fair hygiene. Ears are unremarkable except for cerumen impaction. LUNGS: Clear. HEART: Regular. No murmurs or gallop. BREASTS: Normal. ABDOMEN: Soft, nontender, and no organomegaly. EXTREMITIES: Shows no edema or cyanosis. NEUROLOGIC: Central nervous system exam is grossly intact. LABORATORY DATA: WBC of 10.5, hemoglobin of 14.0, and platelet count of 223,000. Sodium of 139, potassium of 4.3, BUN of 12, and creatinine of 0.6. Serum glucose of 173 down from 275 on admission. Troponin is less than 0.012. DIAGNOSTIC DATA: EKG and CT scan of the brain; official report is pending. MRI of the brain ordered and official report is pending. Carotid ultrasound ordered and report is pending. IMPRESSION: Dizziness, which is intractable is probably multifactorial. Could be due to uncontrolled diabetes and uncontrolled hypertension, one also has to rule out cerebrovascular disease. PLAN: The plan is neurology evaluation, obtain an MRI of the brain. Monitor blood sugar and blood pressure closely and appropriately treat. We would obtain carotid Doppler and further therapy will depend on findings. Dany Alejandra MD
--- NOTE | 2017-12-28 13:41 | US ---
PROCEDURE: Duplex ultrasound of the carotid and vertebral arteries. HISTORY: dizziness COMPARISON: None available. TECHNIQUE: Grayscale and duplex Doppler evaluation of the cervical carotid and vertebral arteries were performed. The common carotid, carotid bifurcations and cervical ICA and proximal ECA were evaluated. The vertebral arteries were evaluated for gross patency and direction. FINDINGS: RIGHT CAROTID ARTERIES: Common Carotid Artery: Intimal thickening is present Maximal flow velocity of 70.4 cm/s. Carotid Bifurcation: Normal. Internal Carotid Artery:Heterogeneous plaque formation. Tortuous right ICA Maximal flow velocity of 78.0 cm/s. External Carotid Artery (proximal branches): Normal. Maximal flow velocity of 46.5 cm/s. ICA/CCA Ratio: 1.1 LEFT CAROTID ARTERIES: Common Carotid Artery: Intimal thickening is present Maximal flow velocity of 100.0 cm/s. Carotid Bifurcation: Heterogeneous plaque formation. Internal Carotid Artery:Heterogeneous plaque formation.tortuous ICA Maximal flow velocity of 67.7 cm/s. External Carotid Artery (proximal branches): Normal. Maximal flow velocity of 81.2 cm/s. ICA/CCA Ratio: 0.7 VERTEBRAL ARTERIES: Right Vertebral Artery: Patent. Antegrade flow. Left Vertebral Artery: Patent. Antegrade flow. OTHER FINDINGS: None. IMPRESSION: Right ICA degree of stenosis: Less than 50% Left ICA degree of stenosis: Less than 50% Reference Internal Carotid Artery (ICA) Peak Systolic Velocity (PSV) for above: 1. Less than 50% stenosis less than 125 cm/s peak systolic velocity 2. 50-69% stenosis 125-230cm/s peak systolic velocity 3. Greater than 70% but less than near occlusion greater than 230 cm/s peak systolic velocity
--- NOTE | 2017-12-28 13:55 | CON ---
DATE: 12/28/2017 NEUROLOGY CONSULTATION CHIEF COMPLAINT: Dizziness. HISTORY OF PRESENT ILLNESS: This is a 67-year-old woman who has history of type 2 diabetes mellitus with asthma, hypertension, hyperlipidemia and anxiety who came in for persistent dizziness in terms of lightheadedness, then spinning sensation of the room, felt like she was blacking out, she says. She complains of right ear pain who is seen in the ER few days ago which was not relieving. A CAT scan of the head shown no intracranial abnormalities, chronic ischemic changes. MRI of the head showed no evidence of any aneurysm, just a hypoplastic right MALT HOUSE KILN OPERATOR, which is irrelevant to her symptoms. She was found to have elevated serum glucose and blood pressure prior to admission. She was given one dose of dexamethasone 2 mg IV x1 dose by me to reduce the lightheadedness and inflammation as well as will help with the headaches. Currently, she is feeling much better. No further lightheadedness. She is going for carotid Doppler. No focal weakness of the extremities. PAST MEDICAL HISTORY: Type 2 diabetes mellitus, asthma, hypertension, hyperlipidemia, and anxiety. FAMILY HISTORY: Non-revealing. SOCIAL HISTORY: No illicit drug use, smoking or EtOH abuse. REVIEW OF SYSTEMS: A 14-point review of systems is negative except in the HPI. MEDICATIONS: Reviewed by nurse's reconciliation sheet. PHYSICAL EXAMINATION: VITAL SIGNS: Temperature of 98.4, pulse rate of 74, blood pressure of 144/71, respiratory rate of 18, and oxygen saturation of 99% by room air. GENERAL: The patient is sitting up in bed, in no acute distress. HEENT: Atraumatic and normocephalic. PERRLA. Extraocular muscles are intact. NECK: Supple. No JVD. No adenopathy noted. LUNGS: Clear to auscultation. No adventitious sounds. HEART: S1 and S2. Normal rate and rhythm. No murmurs, rubs, or gallops. ABDOMEN: Soft, nontender, and nondistended. Bowel sounds are present. EXTREMITIES: No clubbing and no cyanosis. Peripheral pulses are 2+ felt bilaterally. NEUROLOGIC: The patient is alert and oriented to person, place, month, and year. Speech is fluent without any errors. Cranial nerves II through XII are intact. Motor exam: Moves all extremities equally. No pronator drift seen. Sensory exam: Decreased light touch and pinprick up to the calves bilaterally. Decreased vibration at the toes. DTRs are 2+ throughout and 1 at both knees and ankles. Coordination: [id number] intact. No evidence of any dysmetria. Gait is deferred for now. LABORATORY DATA: Sodium of 139, potassium of 4.3, chloride of 106, carbon dioxide of 17, BUN of 12, creatinine of 0.6 and random glucose of 228. ASSESSMENT AND PLAN: This is a 67-year-old woman with history of type 2 diabetes mellitus, asthma, hypertension, hyperlipidemia and anxiety who presented for dizziness, intense lightheadedness, which is likely multifactorial from uncontrolled diabetes and blood pressure, unlikely vertigo since the patient denies any spinning sensation of the room. Her magnetic resonance imaging of the head showed no acute intracranial abnormalities, hypoplastic right posterior cerebral artery, which is irrelevant to her symptoms. RECOMMENDATIONS: At this time I recommend: 1. Orthostatic vital signs. 2. Needs to keep blood sugars between 140 to 180 and needs a diabetic diet. 3. Keep systolic blood pressure between 130s to 140s and diastolic 70 to 80s. 4. Recommend aspirin 81 and Lipitor 40 for stroke prevention. 5. Carotid Doppler. 6. Continue current present medical management. She is clinically stable from my standpoint. Alverto Newby MD
[2017-12-29 08:07] VITALS: BP 120/66; PULSE 70; RESP 20; TEMP 97.8; O2SAT 98
[2017-12-29] MEDS: GlipiZIDE 10 mg SR Tab PO SCH (08:51)
[2017-12-29] MEDS: Insulin Lispro (humaLOG) 100 Units/ml Inj SC SCH (08:53)
--- NOTE | 2017-12-29 08:56 | CP.PCM.DIS ---
Provider - Provider Date of Admission: 12/28/17 09:02 Attending physician: Dany Alejandra MD Time Spent in preparation of Discharge (in minutes): 30 Diagnosis - Discharge Diagnosis (1) Diabetes 1.5, managed as type 2 Status: Acute (2) Hypertension Status: Acute (3) Carotid artery disease Status: Acute (4) Dizziness Status: Acute (5) Unsteady gait Status: Acute (6) Asthma Status: Acute (7) Hyperglycemia Status: Acute Hospital Course - Lab Results Lab Results: Most Recent Lab Values WBC 10.5 K/uL (4.8-10.8) 12/28/17 06:02 RBC 4.22 Mil/uL (3.80-5.20) 12/28/17 06:02 Hgb 14.0 g/dL (12.0-16.0) 12/28/17 06:02 Hct 41.0 % (34.0-47.0) 12/28/17 06:02 MCV 97.0 fl (81.0-99.0) 12/28/17 06:02 MCH 33.2 pg (27.0-31.0) H 12/28/17 06:02 MCHC 34.2 g/dL (33.0-37.0) 12/28/17 06:02 RDW 12.9 % (11.5-14.5) 12/28/17 06:02 Plt Count 223 K/uL (130-400) 12/28/17 06:02 MPV 8.3 fl (7.2-11.7) 12/27/17 11:00 Neut % (Auto) 68.7 % (50.0-75.0) 12/27/17 11:00 Lymph % (Auto) 24.4 % (20.0-40.0) 12/27/17 11:00 Charles % (Auto) 5.5 % (0.0-10.0) 12/27/17 11:00 Eos % (Auto) 0.8 % (0.0-4.0) 12/27/17 11:00 Baso % (Auto) 0.6 % (0.0-2.0) 12/27/17 11:00 Neut # (Auto) 5.4 K/uL (1.8-7.0) 12/27/17 11:00 Lymph # (Auto) 1.9 K/uL (1.0-4.3) 12/27/17 11:00 Charles # (Auto) 0.4 K/uL (0.0-0.8) 12/27/17 11:00 Eos # (Auto) 0.1 K/uL (0.0-0.7) 12/27/17 11:00 Baso # (Auto) 0.0 K/uL (0.0-0.2) 12/27/17 11:00 Sodium 139 mmol/l (132-148) 12/28/17 06:02 Potassium 4.3 MMOL/L (3.6-5.0) 12/28/17 06:02 Chloride 106 mmol/L (98-107) 12/28/17 06:02 Carbon Dioxide 17 mmol/L (22-30) L 12/28/17 06:02 Anion Gap 20 (10-20) 12/28/17 06:02 BUN 12 mg/dl (7-17) 12/28/17 06:02 Creatinine 0.6 mg/dl (0.7-1.2) L 12/28/17 06:02 Est GFR ( Amer) > 60 12/28/17 06:02 Est GFR (Non-Af Amer) > 60 12/28/17 06:02 POC Glucose (mg/dL) 128 mg/dL (65-110) H 12/29/17 05:23 Random Glucose 228 mg/dL (65-105) H 12/28/17 06:02 Calcium 9.1 mg/dL (8.4-10.2) 12/28/17 06:02 Total Bilirubin 0.7 mg/dl (0.2-1.3) 12/27/17 11:00 AST 67 U/L (14-36) H D 12/27/17 11:00 ALT 58 U/L (9-52) H D 12/27/17 11:00 Alkaline Phosphatase 96 U/L (38-126) 12/27/17 11:00 Troponin I < 0.0120 ng/mL (0.00-0.120) 12/27/17 11:00 Total Protein 7.9 G/DL (6.3-8.2) 12/27/17 11:00 Albumin 4.3 g/dL (3.5-5.0) 12/27/17 11:00 Globulin 3.6 gm/dL (2.2-3.9) 12/27/17 11:00 Albumin/Globulin Ratio 1.2 (1.0-2.1) 12/27/17 11:00 - Hospital Course Hospital Course: DIZZINESS RESOLVED BP BETTER CONTROLLED ON MEDS Discharge Exam - Head Exam Head Exam: ATRAUMATIC, NORMAL INSPECTION, NORMOCEPHALIC - Eye Exam Eye Exam: EOMI, Normal appearance, PERRL Pupil Exam: NORMAL ACCOMODATION, PERRL - GI/Abdominal Exam GI & Abdominal Exam: Normal Bowel Sounds - Rectal Exam Rectal Exam: NORMAL INSPECTION - Neurological Exam Neurological exam: Alert, CN II-XII Intact, Normal Gait, Oriented x3, Reflexes Normal - Psychiatric Exam Psychiatric exam: Normal Affect, Normal Mood - Skin Skin Exam: Dry, Intact, Normal Color, Warm Discharge Plan - Follow Up Plan Condition: FAIR Disposition: HOME/ ROUTINE Patient education suggested?: Yes Additional Instructions: DISCHARGE HOME TODAY FURTHER WORKUP OUT PT ADVISE COMPLIANCE TO MEDS AND DIET
--- NOTE | 2017-12-30 09:32 | PQF GENQUE ---
Dr. Alejandra, 2 queries: Please clarify type of asthma: if known Mild intermittent Mild persistent Moderate persistent Severe persistent Other (please specify) Clinically unable to determine Unknown 2. Please clarify acuity of asthma: Uncomplicated With exacerbation(acute) With status asthmaticus Other (please specify) Clinically unable to determine Unknown ER:PE: Respiratory: Positive for: Normal Breath Sounds. Negative for: Wheezing , Respiratory Distress H and P:PE: LUNGS:Clear D/C Summary:Asthma Acute 12/27 Dexamethasone 2 mg IV stat This form is a permanent part of the medical record Clarification of your documentation is requested to better reflect the severity of illness and intensity of treatment of your patient. Indicators present [] Specify: []UNCOMPLICATED MILD INTERMITTENT ASTHMA [] Specify: [] [] Specify: [] [] Specify: [] Location in the medical record that reflects the above clinical findings: [] Treatment Provided: [] PHYSICIAN'S RESPONSE Based on your medical judgment of the clinical indicators outlined above please clarify the following: [] Practitioner response [] If unable to determine, please check the box, sign and date. Present On Admission (POA) Indicator: [] Present at the time of admission [] Not present at the time of admission [] Clinically Undetermined In responding to this query, please exercise your independent professional judgment. The fact that a question is asked does not imply that any particular answer is desired or expected. Thank you for your clarification on this documentation. If you have any questions please call. * Thank you, Nikki Tirado RN ext. #[phone] MTDD
== END 2017-12-29 09:50 | disposition home or self-care (01) | DRG 305 ==
LOC: H.ER 09:28 → H.ERHOLD 10:55 → OBSVTOIN 12-28 09:02 → H.MEDSURG1 12-28 12:35
PROVIDERS: ADMIT Internal Medicine Pulmonary Disease; ATTEND Internal Medicine Pulmonary Disease
DX: I10 Essential (primary) hypertension (principal); E11.65 Type 2 diabetes mellitus with hyperglycemia; E78.5 Hyperlipidemia, unspecified; J45.909 Unspecified asthma, uncomplicated; F41.9 Anxiety disorder, unspecified; Z79.84 Long term (current) use of oral hypoglycemic drugs; Z79.899 Other long term (current) drug therapy; H92.01 Otalgia, right ear; J02.9 Acute pharyngitis, unspecified; R26.81 Unsteadiness on feet; R42 Dizziness and giddiness; Z91.14 Patient's other noncompliance with medication regimen; J45.20 Mild intermittent asthma, uncomplicated

== ENCOUNTER 2018-05-12 13:02 | Emergency (ER) | payer MEDICARE, OTHER ==
[2018-05-12 13:02] VITALS: BMI 27.0
[2018-05-12 13:10] VITALS: TEMP 98.3
[2018-05-12] MEDS ORDERED: Naproxen 500 MG TAB PO ONE ×2 (13:55→14:12)
--- NOTE | 2018-05-12 14:57 | ED PDOC ---
HPI: Trauma/Fall - HPI Time Seen by Provider: 05/12/18 13:24 Chief Complaint (Nursing): Trauma History Per: Patient (Claire [place] today [place] [facility] [place] She landed on her right shoulder but was able to avoid hitting her head. There was no LOC. There was no symptoms prior to the fall. ) Past Medical History Reviewed: Historical Data, Nursing Documentation, Vital Signs Vital Signs: Last Vital Signs Temp 98.3 F 05/12/18 13:07 Pulse 83 05/12/18 13:07 Resp 18 05/12/18 13:07 BP Pulse Ox 99 05/12/18 13:07 - Medical History PMH: Asthma, Diabetes (type II), HTN - Surgical History Surgical History: - Family History Family History: States: Unknown Family Hx - Home Medications Home Medications: Ambulatory Orders Medication Instructions Recorded ALPRAZolam [Xanax] 1 mg PO BID 01/21/17 Glipizide [Glipizide Xl] 10 mg PO BID 01/21/17 SITagliptin [Januvia] 100 mg PO DAILY 01/21/17 Meclizine [Meclizine*] 25 mg PO Q6 PRN #20 tab 12/24/17 Meclizine [Meclizine*] 25 mg PO BID #30 tab 12/29/17 amLODIPine [Norvasc] 10 mg PO DAILY 30 Days #30 tab 12/29/17 - Allergies Allergies/Adverse Reactions: Allergies Allergy/AdvReac Type Severity Reaction Status Date / Time No Known Allergies Allergy Verified 12/28/17 11:49 Review of Systems ROS Statement: Except As Marked, All Systems Reviewed And Found Negative Constitutional: Negative for: Fever, Chills Musculoskeletal: Positive for: Shoulder Pain (right side. No deformity) Skin: Positive for: Lesions (abrasions in the right knee and right elbow.) Physical Exam - Reviewed Nursing Documentation Reviewed: Yes Vital Signs Reviewed: Yes - Physical Exam Appears: Positive for: Well, Non-toxic, No Acute Distress Head Exam: Positive for: ATRAUMATIC, NORMAL INSPECTION, NORMOCEPHALIC Skin: Positive for: Normal Color (abrasion as described in ROS), Warm Eye Exam: Positive for: EOMI, Normal appearance, PERRL ENT: Positive for: Normal ENT Inspection Neck: Positive for: Normal, Painless ROM Cardiovascular/Chest: Positive for: Regular Rate, Rhythm Respiratory: Positive for: CNT, Normal Breath Sounds Gastrointestinal/Abdominal: Positive for: Normal Exam, Soft Back: Positive for: Normal Inspection Extremity: Positive for: Normal ROM Neurologic/Psych: Positive for: Alert, Oriented - ECG O2 Sat by Pulse Oximetry: 99 Disposition - Clinical Impression Clinical Impression: Abrasion - Patient ED Disposition Is Patient to be Admitted: Transfer of Care - Disposition Disposition: Transfer of Care Disposition Time: 14:58 Condition: STABLE Patient Signed Over To: Celena Becerra
--- NOTE | 2018-05-12 15:14 | RAD ---
Date of service: 05/12/2018 PROCEDURE: Radiographs of the Right Shoulder HISTORY: trip and fall COMPARISON: No prior. FINDINGS: BONES: Normal. No fracture. 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 . SOFT TISSUES: Normal. OTHER FINDINGS: None. IMPRESSION: No acute fracture seen. 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
--- NOTE | 2018-05-12 15:24 | ED PDOC ---
- ECG O2 Sat by Pulse Oximetry: 99 (RA) Pulse Ox Interpretation: Normal Medical Decision Making Medical Decision Makin Patient endorsed to me by Dr. Grayson pending XR studies. Accession No. : [id number] Patient Name / ID : KELSIE SCOTT / [id number] Exam Date : 05/12/2018 14:54:36 ( Approved ) Study Comment : Sex / Age : F / 67Y Creator : Dictator : Senior Mobile Developer : Artificial Inseminator : Onofre Kinney MD Approver2 : Report Date : My Comment : Date of service: 05/12/2018 PROCEDURE: Radiographs of the Right Shoulder HISTORY: trip and fall COMPARISON: No prior. FINDINGS: BONES: Normal. No fracture. 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 . SOFT TISSUES: Normal. OTHER FINDINGS: None. IMPRESSION: No acute fracture seen. 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 Scribe Attestation: Documented by Padmaja Verdugo, acting as a scribe for Celena Becerra MD. Provider Scribe Attestation: All medical record entries made by the Scribe were at my direction and personally dictated by me. I have reviewed the chart and agree that the record accurately reflects my personal performance of the history, physical exam, medical decision making, and the department course for this patient. I have also personally directed, reviewed, and agree with the discharge instructions and disposition. Disposition - Clinical Impression Clinical Impression: Abrasion, Shoulder injury - POA Present On Arrival: Falls Or Trauma - Disposition Disposition: Routine/Home Disposition Time: 15:40 Condition: IMPROVED Prescriptions: Naproxen [Naprosyn] 500 mg PO BID PRN #15 tablet PRN Reason: Pain, Moderate (4-7) Instructions: Shoulder Sprain, Skin Abrasions Forms: [employer] (French)
[2018-05-12 15:52] VITALS: BP 132/74; PULSE 71; RESP 15
[2018-05-12 21:23] VITALS: O2SAT 99
== END 2018-05-12 15:52 | disposition home or self-care (01) ==
LOC: H.ER 13:02
DX: S50.311A Abrasion of right elbow, initial encounter (principal); S80.211A Abrasion, right knee, initial encounter; S49.91XA Unspecified injury of right shoulder and upper arm, initial encounter; W01.0XXA Fall on same level from slipping, tripping and stumbling without subsequent striking against object, initial encounter; Y92.89 Other specified places as the place of occurrence of the external cause

== ENCOUNTER 2018-06-26 16:41 | Emergency (ER) | payer MEDICARE, OTHER ==
[2018-06-26 16:42] VITALS: BMI 27.0
[2018-06-26 16:51] VITALS: BP 149/73; PULSE 103; RESP 20; TEMP 98.7; O2SAT 99
--- NOTE | 2018-06-26 17:09 | ED PDOC ---
Upper Extremity Pain/Injury Time Seen by Provider: 06/26/18 16:59 Chief Complaint (Nursing): Upper Extremity Problem/Injury Chief Complaint (Provider): Right Shoulder Pain History Per: Patient History/Exam Limitations: no limitations Onset/Duration Of Symptoms: Days (since 05/12) Current Symptoms Are (Timing): Still Present Additional Complaint(s): 67 year old female presents to the ED for evaluation of right shoulder pain s/p a fall where she landed on the shoulder 05/12/18. She notes having pain to the area ever since, but had a negative XR done at the time, only showing positive for arthritis. Patient states she followed up with her PMD who sent her to Dr. Heller and gave a referral for PT, but due to her lack of photo ID, she has been unable to do either. For pain management, she reports taking Advil and Motrin, but they upset her stomach so she has not taken any medications today. PMD: [place] Past Medical History Reviewed: Historical Data, Nursing Documentation, Vital Signs Vital Signs: Last Vital Signs Temp 98.7 F 06/26/18 16:49 Pulse 103 H 06/26/18 16:49 Resp 20 06/26/18 16:49 BP 149/73 06/26/18 16:49 Pulse Ox 99 06/26/18 16:49 - Medical History PMH: Arthritis, Asthma, Diabetes (type II), HTN - Surgical History Surgical History: - Family History Family History: States: Unknown Family Hx - Home Medications Home Medications: Ambulatory Orders Medication Instructions Recorded ALPRAZolam [Xanax] 1 mg PO BID 01/21/17 Glipizide [Glipizide Xl] 10 mg PO BID 01/21/17 SITagliptin [Januvia] 100 mg PO DAILY 01/21/17 Meclizine [Meclizine*] 25 mg PO Q6 PRN #20 tab 12/24/17 Meclizine [Meclizine*] 25 mg PO BID #30 tab 12/29/17 amLODIPine [Norvasc] 10 mg PO DAILY 30 Days #30 tab 12/29/17 Naproxen [Naprosyn] 500 mg PO BID PRN #15 tablet 05/12/18 - Allergies Allergies/Adverse Reactions: Allergies Allergy/AdvReac Type Severity Reaction Status Date / Time No Known Allergies Allergy Verified 06/26/18 16:48 Review of Systems ROS Statement: Except As Marked, All Systems Reviewed And Found Negative Musculoskeletal: Positive for: Shoulder Pain (right) Physical Exam - Reviewed Nursing Documentation Reviewed: Yes Vital Signs Reviewed: Yes - Physical Exam Appears: Positive for: No Acute Distress Head Exam: Positive for: ATRAUMATIC, NORMOCEPHALIC Skin: Positive for: Normal Color. Negative for: Rash Eye Exam: Positive for: Normal appearance Neck: Positive for: Normal, Painless ROM, Supple Cardiovascular/Chest: Positive for: Tachycardia Respiratory: Positive for: Normal Breath Sounds. Negative for: Respiratory Distress Extremity: Positive for: Tenderness (noted to anterior right bicep and subscapular region). Negative for: Normal ROM (limited in rt shoulder secondary to pain), Other (bony tenderness to rt shoulder) Neurologic/Psych: Positive for: Alert, Oriented (x3). Negative for: Motor/ Sensory Deficits - ECG O2 Sat by Pulse Oximetry: 99 (RA) Pulse Ox Interpretation: Normal Medical Decision Making Medical Decision Making: Time: 1706 Initial Impression: right shoulder pain Initial Plan: --Toradol 30mg IM --Patient is advised to take Tylenol at home for the pain. Scribe Attestation: Documented by Linh Parekh, acting as a scribe for Merced Sigala PA-C. Provider Scribe Attestation: All medical record entries made by the Scribe were at my direction and personally dictated by me. I have reviewed the chart and agree that the record accurately reflects my personal performance of the history, physical exam, medical decision making, and the department course for this patient. I have also personally directed, reviewed, and agree with the discharge instructions and disposition. Disposition - Clinical Impression Clinical Impression: Shoulder pain - Patient ED Disposition Is Patient to be Admitted: No - Disposition Disposition: Routine/Home Disposition Time: 17:25 Condition: FAIR Additional Instructions: PLEASE TAKE TYLENOL FOR PAIN Instructions: Shoulder Pain (DC), Frozen Shoulder Exercises
== END 2018-06-26 18:23 | disposition home or self-care (01) ==
LOC: H.ER 16:41
DX: S49.91XA Unspecified injury of right shoulder and upper arm, initial encounter (principal); W18.30XA Fall on same level, unspecified, initial encounter; E11.9 Type 2 diabetes mellitus without complications; Z79.84 Long term (current) use of oral hypoglycemic drugs; I10 Essential (primary) hypertension; J45.909 Unspecified asthma, uncomplicated
CPT/HCPCS: 96372; 99282; J1885

== ENCOUNTER 2018-08-06 11:24 | Emergency (ER) | payer MEDICARE, OTHER ==
[2018-08-06 11:25] VITALS: BMI 27.0
[2018-08-06 11:45] VITALS: BP 157/79; PULSE 90; RESP 20; TEMP 98.3; O2SAT 98
--- NOTE | 2018-08-06 13:22 | ED PDOC ---
Upper Extremity Pain/Injury Time Seen by Provider: 08/06/18 12:18 Chief Complaint (Nursing): Upper Extremity Problem/Injury Chief Complaint (Provider): Right shoulder pain History Per: Patient History/Exam Limitations: no limitations Onset/Duration Of Symptoms: Days (4x months) Current Symptoms Are (Timing): Still Present Severity: Moderate Additional Complaint(s): 67 year old female presents to the ED with complaints of right shoulder pain that started 4x months ago when she fell. Patient reports going to her PMD (), had XRays taken, and followed up with physical therapy. Patient has been taking NSAIDs and going to physical therapy with no improvement. Patient requested more pain medication from her physical therapist, but since they could not prescribe it, she called twice, but he did not respond, which is what prompted her ED visit today. Patient denies having any new falls or trauma. PMD: Dany Alejandra MD Past Medical History Reviewed: Historical Data, Nursing Documentation, Vital Signs Vital Signs: Last Vital Signs Temp 98.3 F 08/06/18 11:44 Pulse 90 08/06/18 11:44 Resp 20 08/06/18 11:44 BP 157/79 H 08/06/18 11:44 Pulse Ox 98 08/06/18 11:44 - Medical History PMH: Arthritis, Asthma, Diabetes (type II), HTN - Surgical History Surgical History: - Family History Family History: States: No Known Family Hx - Social History Alcohol: None Drugs: Denies - Home Medications Home Medications: Ambulatory Orders Medication Instructions Recorded ALPRAZolam [Xanax] 1 mg PO BID 01/21/17 Glipizide [Glipizide Xl] 10 mg PO BID 01/21/17 SITagliptin [Januvia] 100 mg PO DAILY 01/21/17 Meclizine [Meclizine*] 25 mg PO Q6 PRN #20 tab 12/24/17 Meclizine [Meclizine*] 25 mg PO BID #30 tab 12/29/17 amLODIPine [Norvasc] 10 mg PO DAILY 30 Days #30 tab 12/29/17 Naproxen [Naprosyn] 500 mg PO BID PRN #15 tablet 05/12/18 traMADol [Ultram] 50 mg PO Q6H PRN #20 tab 08/06/18 - Allergies Allergies/Adverse Reactions: Allergies Allergy/AdvReac Type Severity Reaction Status Date / Time No Known Allergies Allergy Verified 06/26/18 16:48 Review of Systems ROS Statement: Except As Marked, All Systems Reviewed And Found Negative Musculoskeletal: Positive for: Shoulder Pain (right) Physical Exam - Reviewed Nursing Documentation Reviewed: Yes Vital Signs Reviewed: Yes - Physical Exam Appears: Positive for: Well, Non-toxic, No Acute Distress Head Exam: Positive for: ATRAUMATIC, NORMOCEPHALIC Skin: Positive for: Normal Color Eye Exam: Positive for: Normal appearance ENT: Positive for: Normal ENT Inspection Neck: Positive for: Normal Cardiovascular/Chest: Negative for: Bradycardia, Tachycardia Respiratory: Negative for: Accessory Muscle Use, Respiratory Distress Extremity: Positive for: Other (normal distal pulses). Negative for: Normal ROM (right shoulder: decreased abduction due to pain), Deformity Neurologic/Psych: Positive for: Alert, Oriented (3x) - ECG O2 Sat by Pulse Oximetry: 98 (RA) Pulse Ox Interpretation: Normal Medical Decision Making Medical Decision Makin:18 Initial impression: 67 year old female with right shoulder pain Initial plan: * ultram 50 mg PO discussed f/u for MRI Scribe Attestation: Documented by Christie Dudley, acting as a scribe for Pat Mitchell PA-C. Provider Scribe Attestation: All medical record entries made by the Scribe were at my direction and personally dictated by me. I have reviewed the chart and agree that the record accurately reflects my personal performance of the history, physical exam, medical decision making, and the department course for this patient. I have also personally directed, reviewed, and agree with the discharge instructions and disposition. Disposition - Clinical Impression Clinical Impression: Chronic shoulder pain Counseled Patient/Family Regarding: Diagnosis, Need For Followup, Rx Given - Disposition Referrals: Tariq Samuel III, MD [Staff Provider] - Disposition: Routine/Home Disposition Time: 13:36 Condition: GOOD Prescriptions: traMADol [Ultram] 50 mg PO Q6H PRN #20 tab PRN Reason: Pain Instructions: Chronic Pain Forms: [facility] (Guamanian)
== END 2018-08-06 15:20 | disposition home or self-care (01) ==
LOC: H.ER 11:24
DX: M25.511 Pain in right shoulder (principal)

== ENCOUNTER 2018-09-28 14:29 | Emergency (ER) | payer MEDICARE, OTHER ==
[2018-09-28 14:30] VITALS: BMI 27.0
[2018-09-28 14:37] VITALS: RESP 18; TEMP 99; O2SAT 97
--- NOTE | 2018-09-28 15:51 | ED PDOC ---
Upper Extremity Pain/Injury Time Seen by Provider: 09/28/18 15:08 Chief Complaint (Nursing): Upper Extremity Problem/Injury Past Medical History Vital Signs: Last Vital Signs Temp 99 F 09/28/18 14:34 Pulse 100 H 09/28/18 14:34 Resp 18 09/28/18 14:34 BP 150/75 09/28/18 14:34 Pulse Ox 97 09/28/18 14:34 - Medical History PMH: Arthritis, Asthma, Diabetes (type II), HTN - Surgical History Surgical History: - Family History Family History: States: Unknown Family Hx - Home Medications Home Medications: Ambulatory Orders Medication Instructions Recorded ALPRAZolam [Xanax] 1 mg PO BID 01/21/17 Glipizide [Glipizide Xl] 10 mg PO BID 01/21/17 SITagliptin [Januvia] 100 mg PO DAILY 01/21/17 Meclizine [Meclizine*] 25 mg PO Q6 PRN #20 tab 12/24/17 Meclizine [Meclizine*] 25 mg PO BID #30 tab 12/29/17 amLODIPine [Norvasc] 10 mg PO DAILY 30 Days #30 tab 12/29/17 Naproxen [Naprosyn] 500 mg PO BID PRN #15 tablet 05/12/18 traMADol [Ultram] 50 mg PO Q6H PRN #20 tab 08/06/18 - Allergies Allergies/Adverse Reactions: Allergies Allergy/AdvReac Type Severity Reaction Status Date / Time No Known Allergies Allergy Verified 09/28/18 14:32 - ECG O2 Sat by Pulse Oximetry: 97 Disposition - Disposition
--- NOTE | 2018-09-28 15:51 | ED PDOC ---
Upper Extremity Pain/Injury Time Seen by Provider: 09/28/18 15:08 Chief Complaint (Nursing): Upper Extremity Problem/Injury Chief Complaint (Provider): Upper Extremity Problem/Injury History Per: Patient History/Exam Limitations: no limitations Onset/Duration Of Symptoms: Days Current Symptoms Are (Timing): Still Present Quality: Sharp, "Pain" Additional Complaint(s): 68 y/o female with a PMHx of Arthritis, Asthma, DM and HTN presents to the ED for evaluation of right shoulder pain. Patient reports she was sent for Physical Therapy by her PMD for multiple tears located in the right shoulder. However, patient reports symptoms have not improved but worsened. Patient additionally reports of taking [id number] medications with no relief. Patient was then referred to a pain management physician but was unable to make an appointment due to a change in location of their doctor's office as well as them not taking the patient's HMO. Patient states she is unable to sleep due to severity of pain. PMD: Dany Alejandra I. Past Medical History Reviewed: Historical Data, Nursing Documentation, Vital Signs Vital Signs: Last Vital Signs Temp 99 F 09/28/18 14:34 Pulse 100 H 09/28/18 14:34 Resp 18 09/28/18 14:34 BP 150/75 09/28/18 14:34 Pulse Ox 97 09/28/18 14:34 - Medical History PMH: Arthritis, Asthma, Diabetes (type II), HTN - Surgical History Surgical History: - Family History Family History: States: Unknown Family Hx - Home Medications Home Medications: Ambulatory Orders Medication Instructions Recorded ALPRAZolam [Xanax] 1 mg PO BID 01/21/17 Glipizide [Glipizide Xl] 10 mg PO BID 01/21/17 SITagliptin [Januvia] 100 mg PO DAILY 01/21/17 Meclizine [Meclizine*] 25 mg PO Q6 PRN #20 tab 12/24/17 Meclizine [Meclizine*] 25 mg PO BID #30 tab 12/29/17 amLODIPine [Norvasc] 10 mg PO DAILY 30 Days #30 tab 12/29/17 Naproxen [Naprosyn] 500 mg PO BID PRN #15 tablet 05/12/18 traMADol [Ultram] 50 mg PO Q6H PRN #20 tab 08/06/18 Acetaminophen/Codeine 1 tab PO QID #15 tab 09/28/18 [Tylenol/Codeine 300 MG/30 MG] - Allergies Allergies/Adverse Reactions: Allergies Allergy/AdvReac Type Severity Reaction Status Date / Time No Known Allergies Allergy Verified 09/28/18 14:32 Review of Systems ROS Statement: Except As Marked, All Systems Reviewed And Found Negative Musculoskeletal: Positive for: Shoulder Pain (right) Physical Exam - Reviewed Nursing Documentation Reviewed: Yes Vital Signs Reviewed: Yes - Physical Exam Appears: Positive for: Well, Non-toxic, No Acute Distress Head Exam: Positive for: ATRAUMATIC, NORMAL INSPECTION Skin: Positive for: Normal Color, Warm, Dry. Negative for: Diaphoresis, Pallor, Rash Eye Exam: Negative for: Nystagmus, Periorbital swelling, Periorbital tenderness Neck: Positive for: Normal, Painless ROM, Supple. Negative for: Decreased ROM Cardiovascular/Chest: Positive for: Regular Rate, Rhythm Respiratory: Positive for: Normal Breath Sounds Pulses-Carotid (L): 2+ Pulses-Carotid (R): 2+ Pulses-Radial (L): 2+ Pulses-Radial (R): 2+ Extremity: Positive for: Tenderness (tenderness to palpation of the posterior scapula of the right shoulder. Scarf sign negative; luna and empty can test positive), Other ((-) scarf sign and (-) hawk sig. ) - ECG O2 Sat by Pulse Oximetry: 97 (RA) Pulse Ox Interpretation: Normal Medical Decision Making Medical Decision Making: Time: 1549 Plan: -- Tylenol 650 mg PO -- Tordaol 60 mg IM -- Decadron Inj 10 mg IM -- Patient advised to follow up with PMD for pain management referral and further management. Patient additionally advised that we will be unable to administer pain killers in the ER. However, patient is to be given pain relief medications for further management. Patient agrees with plan of care. _ Scribe Attestation: Documented by Diony Jiménez, acting as a scribe for Zeus Santana PA-.C Provider Scribe Attestation: All medical record entries made by the Scribe were at my direction and personally dictated by me. I have reviewed the chart and agree that the record accurately reflects my personal performance of the history, physical exam, medical decision making, and the department course for this patient. I have also personally directed, reviewed, and agree with the discharge instructions and disposition. Disposition - Clinical Impression Clinical Impression: Shoulder pain - Patient ED Disposition Is Patient to be Admitted: No Doctor Will See Patient In The: Office Counseled Patient/Family Regarding: Studies Performed, Diagnosis, Need For Followup, Rx Given - Disposition Referrals: Dany Alejandra MD [Staff Provider] - Disposition: Routine/Home Disposition Time: 16:28 Condition: STABLE Prescriptions: Acetaminophen/Codeine [Tylenol/Codeine 300 MG/30 MG] 1 tab PO QID #15 tab Instructions: Shoulder Pain (DC) Forms: [facility] (Georgian)
[2018-09-28 17:02] VITALS: BP 136/62; PULSE 86
== END 2018-09-28 17:02 | disposition home or self-care (01) ==
LOC: H.ER 14:29
DX: M25.511 Pain in right shoulder (principal)
CPT/HCPCS: 96372; 99283; J1100; J1885

== ENCOUNTER 2018-10-01 18:52 | Emergency (ER) | payer MEDICARE, OTHER ==
[2018-10-01 18:53] VITALS: BMI 27.0
--- NOTE | 2018-10-01 20:17 | ED PDOC ---
HPI: Influenza Time Seen by Provider: 10/01/18 19:25 Chief Complaint: Cough, Cold, Congestion Chief Complaint (Provider): Flu-like Symptoms History Per: Patient Exam Limitations: no limitations Onset/Duration Of Symptoms: Days (x2) Additional complaint(s):: 68 year old female presents to the ED for evaluation of flu-like symptoms for two days. She reports a dry cough, body aches, nasal congestion, and a tactile fever. Denies other complaints. PMD: none provided Past Medical History Reviewed: Historical Data, Nursing Documentation, Vital Signs Vital Signs: Last Vital Signs Temp 99.2 F 10/01/18 19:15 Pulse 113 H 10/01/18 19:15 Resp 20 10/01/18 19:15 BP 163/93 H 10/01/18 19:15 Pulse Ox 96 10/01/18 19:15 - Medical History PMH: Arthritis, Asthma, Diabetes (type II), HTN, Hyperlipidemia - Surgical History Surgical History: Other surgeries: nose surgery; left leg surgery - Family History Family History: States: Unknown Family Hx - Social History Current smoker - smoking cessation education provided: No Ex-Smoker (has not smoked in the last 12 months): Yes Alcohol: None Drugs: Denies - Home Medications Home Medications: Ambulatory Orders Medication Instructions Recorded ALPRAZolam [Xanax] 1 mg PO BID 01/21/17 Glipizide [Glipizide Xl] 10 mg PO BID 01/21/17 SITagliptin [Januvia] 100 mg PO DAILY 01/21/17 Meclizine [Meclizine*] 25 mg PO Q6 PRN #20 tab 12/24/17 Meclizine [Meclizine*] 25 mg PO BID #30 tab 12/29/17 amLODIPine [Norvasc] 10 mg PO DAILY 30 Days #30 tab 12/29/17 Naproxen [Naprosyn] 500 mg PO BID PRN #15 tablet 05/12/18 traMADol [Ultram] 50 mg PO Q6H PRN #20 tab 08/06/18 Acetaminophen/Codeine 1 tab PO QID #15 tab 09/28/18 [Tylenol/Codeine 300 MG/30 MG] Oseltamivir Phosphate [Tamiflu] 75 mg PO BID #10 capsule 10/01/18 - Allergies Allergies/Adverse Reactions: Allergies Allergy/AdvReac Type Severity Reaction Status Date / Time No Known Allergies Allergy Verified 10/01/18 19:15 Review of Systems ROS Statement: Except As Marked, All Systems Reviewed And Found Negative Constitutional: Positive for: Fever (tactile), Other (body aches) ENT: Positive for: Nose Congestion Respiratory: Positive for: Cough (dry) Physical Exam - Reviewed Nursing Documentation Reviewed: Yes Vital Signs Reviewed: Yes - Physical Exam Appears: Positive for: No Acute Distress Head Exam: Positive for: ATRAUMATIC, NORMOCEPHALIC Skin: Positive for: Normal Color, Warm. Negative for: Rash Eye Exam: Positive for: Normal appearance, EOMI, PERRL ENT: Positive for: Nasal Congestion (mild). Negative for: Pharyngeal Erythema, Tonsillar Exudate, Tonsillar Swelling Neck: Positive for: Normal, Painless ROM, Supple Cardiovascular/Chest: Positive for: Regular Rate, Rhythm Respiratory: Positive for: Normal Breath Sounds. Negative for: Respiratory Distress Gastrointestinal/Abdominal: Positive for: Normal Exam, Soft. Negative for: Tenderness Neurologic/Psych: Positive for: Alert, Oriented (x3) Medical Decision Making Medical Decision Making: Time: 1956 Initial Impression: flu-like symptoms Initial Plan: --CXR --Influenza A B swab 2038 Flu A (+). Accucheck ordered 2109 In light of accucheck being 323, testing flu +, and patient not on insulin at home, labs ordered and normal saline / insulin IV started. Labs show hyperglycemia with AG11, pt. well appearing. Repeat fingerstick...180 HR 86. Scribe Attestation: Documented by Linh Parekh, acting as a scribe for Colette Rodriguez PA-C. Provider Scribe Attestation: All medical record entries made by the Scribe were at my direction and personal ly dictated by me. I have reviewed the chart and agree that the record accurately reflects my personal performance of the history, physical exam, medical decision making, and the department course for this patient. I have also personally directed, reviewed, and agree with the discharge instructions and disposition. - Laboratory Results Result Diagrams: 10/01/18 21:39 10/01/18 21:39 - ECG O2 Sat by Pulse Oximetry: 96 (RA) Pulse Ox Interpretation: Normal Disposition - Clinical Impression Clinical Impression: Influenza, Hyperglycemia - Patient ED Disposition Is Patient to be Admitted: No Counseled Patient/Family Regarding: Studies Performed, Diagnosis, Need For Followup, Rx Given - Disposition Disposition: Routine/Home Disposition Time: 22:55 Condition: IMPROVED Prescriptions: Oseltamivir Phosphate [Tamiflu] 75 mg PO BID #10 capsule Instructions: Flu, Flu, Adult (DC), Hyperglycemia, Adult (DC) Forms: [employer] (Malagasy)
[2018-10-01 20:56] VITALS: RESP 18
[2018-10-01] MEDS ORDERED: Insulin Regular 100 units/ml IV STA (21:32)
[2018-10-01 21:34] VITALS: O2SAT 96
[2018-10-01 21:46] LABS: BASO # 0.1 K/uL (0.0-0.2); BASO % 0.6 % (0.0-2.0); EOS # 0.1 K/uL (0.0-0.7); EOS % 1.2 % (0.0-4.0); HEMOGLOBIN 14.5 g/dL (12.0-16.0); LYMPH # 1.1 K/uL (1.0-4.3); LYMPH % 11.9 % (20.0-40.0); MEAN CORPUSCULAR HEMOGLOBIN 33.2 pg (27.0-31.0); MEAN CORPUSCULAR HGB CONC 34.3 g/dL (33.0-37.0); MEAN PLATELET VOLUME 8.2 fl (7.2-11.7); MONO # 0.5 K/uL (0.0-0.8); MONO % 5.4 % (0.0-10.0); NEUT # 7.4 K/uL (1.8-7.0); NEUT % 80.9 % (50.0-75.0); NRBC % 0.1 % (0.0-0.0); RBC 4.36 Mil/uL (3.80-5.20); RED CELL DISTRIBUTION WIDTH 12.7 % (11.5-14.5); WHITE BLOOD COUNT 9.1 K/uL (4.8-10.8)
[2018-10-01 21:55] LABS: ALB/GLOB RATIO 1.2 (1.0-2.1); ALBUMIN 4.4 g/dL (3.5-5.0); BLOOD UREA NITROGEN 13 mg/dl (7-17); CALCIUM 9.3 mg/dL (8.4-10.2); GFR NON-AFRICAN AMERICAN > 60
[2018-10-01 22:03] LABS: ALT/SGPT 33 U/L (9-52); AST/SGOT 58 U/L (14-36)
[2018-10-01] MEDS ORDERED: Insulin Regular 100 units/ml ONE ×2 (22:04→22:19)
[2018-10-01 23:04] VITALS: BP 132/77; PULSE 88; TEMP 98.9
--- NOTE | 2018-10-02 16:33 | RAD ---
Date of service: 10/01/2018 HISTORY: cough COMPARISON: Comparison made with chest radiograph dated 12/27/2017. TECHNIQUE: Chest PA and lateral FINDINGS: LUNGS: No active pulmonary disease. PLEURA: No significant pleural effusion identified. No pneumothorax apparent. CARDIOVASCULAR: Mild aortic atherosclerotic calcification present. Normal cardiac size. OSSEOUS STRUCTURES: Mild multilevel degenerative spondylosis of the thoracic spine. VISUALIZED UPPER ABDOMEN: Normal. OTHER FINDINGS: None. IMPRESSION: No active disease.
== END 2018-10-01 23:03 | disposition home or self-care (01) ==
LOC: H.ER 18:52
DX: E11.65 Type 2 diabetes mellitus with hyperglycemia (principal); J11.1 Influenza due to unidentified influenza virus with other respiratory manifestations; E78.5 Hyperlipidemia, unspecified; Z79.84 Long term (current) use of oral hypoglycemic drugs

== ENCOUNTER 2018-12-26 09:42 | Emergency (ER) | payer MEDICARE, OTHER ==
[2018-12-26 09:42] VITALS: BMI 27.0
[2018-12-26 09:50] VITALS: BP 144/83; PULSE 83; RESP 16; TEMP 97.3
[2018-12-26 10:22] LABS: SQUAMOUS EPITHIAL 2 /hpf (0-5); URINE BACTERIA MANY (<OCC); URINE BILIRUBIN NEGATIVE (NEGATIVE); URINE BLOOD NEGATIVE (NEGATIVE); URINE CLARITY CLOUDY (Clear); URINE COLOR YELLOW (YELLOW); URINE GLUCOSE (UA) >=500 mg/dL (NEGATIVE); URINE LEUKOCYTE ESTERASE MOD Leu/uL (Negative); URINE PROTEIN 100 mg/dL (NEGATIVE); URINE UROBILINOGEN 0.2-1.0 mg/dL (0.2-1.0); WBC CLUMPS MOD /hpf
[2018-12-26 10:42] VITALS: O2SAT 100
--- NOTE | 2018-12-26 11:09 | ED PDOC ---
HPI: Female Pain Time Seen by Provider: 12/26/18 09:50 Chief Complaint (Nursing): Female Genitourinary Chief Complaint (Provider): Female Genitourinary History Per: Patient History/Exam Limitations: no limitations Onset/Duration Of Symptoms: Days (x2) Current Symptoms Are (Timing): Still Present Additional Complaint(s): 68 year old female with h/o DM, HTN, asthma, presents to the ED for evaluation of vaginal itching and worsening constant burning vaginal pain exacerbated with urination for the past two days unrelieved by OTC yeast pills and anti-fungal cream. Additionally, patient notes that she is unsure if the liquid dripping down her leg at times is urine or discharge. Otherwise, denies abdominal pain, nausea, vomiting, hematuria, and being sexually active. PMD: Dany Alejandra I Past Medical History Reviewed: Historical Data, Nursing Documentation, Vital Signs Vital Signs: Last Vital Signs Temp 97.3 F L 12/26/18 09:45 Pulse 83 12/26/18 09:45 Resp 16 12/26/18 09:45 BP 144/83 12/26/18 09:45 Pulse Ox 100 12/26/18 10:41 - Medical History PMH: Anxiety, Arthritis, Asthma, Diabetes (type II), HTN, Hyperlipidemia - Surgical History Surgical History: Other surgeries: tubal ligation, ankle surgery, facial surgery - Family History Family History: States: Other Other Family History: mother had emphysema - Social History Current smoker - smoking cessation education provided: No Alcohol: Occasional Drugs: Denies - Immunization History Hx Tetanus Toxoid Vaccination: No Hx Influenza Vaccination: Yes (2017) Hx Pneumococcal Vaccination: Yes (2017) - Home Medications Home Medications: Ambulatory Orders Medication Instructions Recorded ALPRAZolam [Xanax] 1 mg PO BID 01/21/17 Glipizide [Glipizide Xl] 10 mg PO BID 01/21/17 SITagliptin [Januvia] 100 mg PO DAILY 01/21/17 Meclizine [Meclizine*] 25 mg PO Q6 PRN #20 tab 12/24/17 Meclizine [Meclizine*] 25 mg PO BID #30 tab 12/29/17 amLODIPine [Norvasc] 10 mg PO DAILY 30 Days #30 tab 12/29/17 Naproxen [Naprosyn] 500 mg PO BID PRN #15 tablet 05/12/18 traMADol [Ultram] 50 mg PO Q6H PRN #20 tab 08/06/18 Acetaminophen/Codeine 1 tab PO QID #15 tab 09/28/18 [Tylenol/Codeine 300 MG/30 MG] Oseltamivir Phosphate [Tamiflu] 75 mg PO BID #10 capsule 10/01/18 Benzonatate [Tessalon Perles] 100 mg PO BID PRN #15 sgl 10/02/18 Oseltamivir Phosphate [Tamiflu] 75 mg PO BID #9 capsule 10/02/18 Nitrofurantoin Macrocrystals 100 mg PO BID 7 Days #14 cap 12/26/18 [Macrobid] Phenazopyridine [Pyridium] 200 mg PO TID 2 Days #6 tab 12/26/18 - Allergies Allergies/Adverse Reactions: Allergies Allergy/AdvReac Type Severity Reaction Status Date / Time No Known Allergies Allergy Verified 10/02/18 18:35 Review of Systems ROS Statement: Except As Marked, All Systems Reviewed And Found Negative Gastrointestinal: Negative for: Nausea, Vomiting, Abdominal Pain Genitourinary Female: Positive for: Dysuria, Other (vaginal pain and itching ). Negative for: Hematuria Physical Exam - Reviewed Nursing Documentation Reviewed: Yes Vital Signs Reviewed: Yes - Physical Exam Comments: GENERAL: Well appearing in NAD. SKIN: Warm, dry; (-) cyanosis. CHEST AND RESPIRATORY: (-) wheezing; (-) rales, (-) rhonchi, (-) rub; breath sounds equal bilaterally. HEART AND CARDIOVASCULAR: (-) irregularity; (-) murmur, (-) gallop. ABDOMEN AND GI: Soft, (-) tenderness. Normal bowel sounds. PELVIC: Normal external genitalia; (-) vesicles, (-) ulcers, (-) rash. (-) cervical discharge, (-) bleeding, (-) pain on cervical motion. No adnexal mass or tenderness. 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 NEURO: alert, awake, oriented x3. - Laboratory Results Lab Results: Urine Color Yellow (YELLOW) 12/26/18 10:05 Urine Clarity Cloudy (Clear) 12/26/18 10:05 Urine pH 6.0 (5.0-8.0) 12/26/18 10:05 Ur Specific Hungry Horse 1.031 (1.003-1.030) H 12/26/18 10:05 Urine Protein 100 mg/dL (NEGATIVE) 12/26/18 10:05 Urine Glucose (UA) >=500 mg/dL (NEGATIVE) 12/26/18 10:05 Urine Ketones Negative mg/dL (NEGATIVE) 12/26/18 10:05 Urine Blood Negative (NEGATIVE) 12/26/18 10:05 Urine Nitrate Positive (NEGATIVE) H 12/26/18 10:05 Urine Bilirubin Negative (NEGATIVE) 12/26/18 10:05 Urine Urobilinogen 0.2-1.0 mg/dL (0.2-1.0) 12/26/18 10:05 Ur Leukocyte Esterase Mod Ld/uL (Negative) 12/26/18 10:05 Urine RBC (Auto) 13 /hpf (0-3) H 12/26/18 10:05 Urine WBC Clumps (Auto) Mod /hpf (NONE) H 12/26/18 10:05 Urine Microscopic WBC 99 /hpf (0-5) H 12/26/18 10:05 Ur Squamous Epith Cells 2 /hpf (0-5) 12/26/18 10:05 Urine Bacteria Many (<OCC) H 12/26/18 10:05 - ECG O2 Sat by Pulse Oximetry: 100 (RA) Pulse Ox Interpretation: Normal Medical Decision Making Medical Decision Making: Time: 952 Initial Impression: vaginal itching / burning Initial Plan: --Genital culture --Urine culture --Urinalysis 10:30 UA shows UTI, will treat pt with Macrobid and Pyridium for bladder pain Pt asking for OBGYN doctor to follow up with, she reports she doesnt have one and that her PMD will not deal with that stuff Discussed results, diagnosis, treatment, return precautions and f/u with pt who is understanding, in agreement and stable for dc Scribe Attestation: Documented by Linh Parekh, acting as a scribe for Armando Zhang PA-C. Provider Scribe Attestation: All medical record entries made by the Scribe were at my direction and pers onally dictated by me. I have reviewed the chart and agree that the record accurately reflects my personal performance of the history, physical exam, medical decision making, and the department course for this patient. I have also personally directed, reviewed, and agree with the discharge instructions and disposition. Disposition - Clinical Impression Clinical Impression: UTI (urinary tract infection) - Patient ED Disposition Is Patient to be Admitted: No Counseled Patient/Family Regarding: Studies Performed, Diagnosis, Need For Followup, Rx Given - Disposition [facility] Aleida Greenberg MD [Staff Provider] - Dany Alejandra MD [Family Provider] - Disposition: Routine/Home Disposition Time: 10:31 Condition: STABLE Additional Instructions: Return to ED for new or worsening symptoms, fever >100.4, abdominal pain, vomiting, back pain. Follow up with your primary care doctor in 3-5 days. Take antibiotics as prescribed until finished. Drink plenty of water. Prescriptions: Nitrofurantoin Macrocrystals [Macrobid] 100 mg PO BID 7 Days #14 cap Phenazopyridine [Pyridium] 200 mg PO TID 2 Days #6 tab Instructions: Urinary Tract Infection, Adult (DC) Forms: [employer] (Hong Konger) Print Language: MALAYSIAN - POA Present On Arrival: None Results - Lab Results Lab Results: 12/26/18 10:05 Urine Color Yellow Urine Clarity Cloudy Urine pH 6.0 Ur Specific Hungry Horse 1.031 H Urine Protein 100 Urine Glucose (UA) >=500 Urine Ketones Negative Urine Blood Negative Urine Nitrate Positive H Urine Bilirubin Negative Urine Urobilinogen 0.2-1.0 Ur Leukocyte Esterase Mod Urine RBC (Auto) 13 H Urine WBC Clumps (Auto) Mod H Urine Microscopic WBC 99 H Ur Squamous Epith Cells 2 Urine Bacteria Many H
== END 2018-12-26 10:40 | disposition home or self-care (01) ==
LOC: H.ER 09:42
DX: N39.0 Urinary tract infection, site not specified (principal); E11.9 Type 2 diabetes mellitus without complications; E78.5 Hyperlipidemia, unspecified; I10 Essential (primary) hypertension; Z79.84 Long term (current) use of oral hypoglycemic drugs